=== PATIENT | female | born 1950 | race Caucasian/White ===

== ENCOUNTER 2019-11-13 09:43 | Emergency (ER) | payer OTHER, MEDICARE, SELFPAY ==
--- NOTE | ~2019-11-13 | XR_ITS ---
EXAMINATION: XR chest 2V 11/13/2019 10:18 INDICATION: Cough with shortness of breath PROCEDURE: 2 view chest COMPARISON: No prior studies for comparison. FINDINGS: The lungs are clear. The cardiomediastinal silhouette is within normal limits. There are no pleural effusions. There is no pneumothorax suspected. Moderate size hiatal hernia. IMPRESSION: 1: NO ACUTE CARDIOPULMONARY DISEASE. Reviewed, dictated and finalized at location A. [employer]
[2019-11-13 09:58] VITALS: BP 130/68; PULSE 113; RESP 18; TEMP 37.3; O2SAT 97
--- NOTE | 2019-11-13 10:58 | ED.URI ---
HPI - URI/Sore Throat General Chief Complaint: Upper Respiratory Infection Stated Complaint: COUGH/SOB Time Seen by Provider: 11/13/19 10:58 Source: patient and RN notes reviewed Mode of arrival: ambulatory Limitations: no limitations History of Present Illness HPI Narrative: 69-year-old female who presents to [facility] care with complaints of persistent cough since September.Patient states she had a cold the first part of September and continues to have cough with expectoration of thick white mucous at times. Patient states that she has also experienced shortness of breath with exertion at times. She reports that for the past 4 days she has had right ear pain. Patient reports that she did have a fever of 100.9F 2 or 3 days ago and has been taking cold medications and OTC Ibuprofen for her symptoms without resolution. Patient has coarse lungs sounds on auscultation, no wheezing noted or tachypnea or accessory muscle use, SAO2 97% on room air.. MD elicited complaint: cough Onset (ago): month(s) (2) Consistency: constant Severity: mild Pain scale (0-10): 3 Description of mucous: other (White thick) Able to tolerate fluids by mouth: Yes Exacerbating factors: exertion Relieving factors: nothing Associated symptoms: fever, cough, shortness of breath and ear pain (right) Treatments prior to arrival: ibuprofen and cold medicine Related Data Home Medications Medication Instructions Recorded Confirmed duloxetine 60 mg PO DAILY 11/13/19 11/13/19 omeprazole 40 mg PO DAILY 11/13/19 11/13/19 Allergies Allergy/AdvReac Type Severity Reaction Status Date / Time penicillin G Allergy Mild RASH Verified 06/21/18 11:48 Review of Systems Review of Systems: Narrative: CONSTITUTIONAL: reports recent fever 2or 3 days ago of 100.9F, no chills, or sweats. EYES: Denies visual changes, redness, or discharge. ENT: Denies rhinorrhea, congestion, sore throat, positive right ear otalgia. CARDIOVASCULAR: Denies chest pain, palpitations, or edema. RESPIRATORY: positive dry and productive cough dyspnea on exertion. GASTROINTESTINAL: Denies abdominal pain, nausea, vomiting, or diarrhea. GENITOURINARY: Denies dysuria or hematuria. SKIN: Denies rash or itching. MUSCULOSKELETAL: Denies back pain, joint pain, or myalgia. NEUROLOGIC: Denies headache, numbness, or weakness. PSYCHIATRIC: Denies anxiety or depression. All systems reviewed & are unremarkable except as noted in HPI and below PMFSH Past Medical History Medical History (Updated 11/14/19 @ 20:56 by Tila Hernandez NP) Colon polyps Eczema GERD (gastroesophageal reflux disease) Pulmonary embolism Tubal infertility in female Surgical History Surgical History (Updated 11/14/19 @ 20:51 by Tila Hernandez NP) History of colon resection Family History Family History Other Family history of heart disease in male family member before age 55 Social History Social History (Updated 11/14/19 @ 20:52 by Tila Hernandez NP) Smoking status: Former smoker Second hand tobacco smoke exposure: No Smoking end date: 10/12/81 Living arrangements: with family Gender identity (if verbalized by the patient): Female Comments At time of signature, agree with nursing past medical, surgical, social and family history. There is no relevant family history pertinent to the presenting complaint Exam Narrative: Exam Narrative: GENERAL: Well-appearing, well-nourished, and in no acute distress. HEAD: Normocephalic, atraumatic. EYES: PERRLA and EOMI. ENT: Nares clear, no rhinorrhea or epistaxis. Mucous membranes moist.TM's normal with right ear noted to have dull light reflex, throat pink with no swollen tonsils or lesions NECK: Supple.no lymphadenopathy CHEST:Coarse to auscultation. No respiratory distress.some LOVING verbalized, cough which is productive of thick white mucous at times HEART: Regular rate and rhythm. No murmur heard. Normal periphe
== END 2019-11-13 11:22 | disposition home or self-care (01) ==
PROVIDERS: Emergency Provider Registered Nurse; PCP Family Medicine Adolescent Medicine
DX: R05 Cough (principal); H92.01 Otalgia, right ear
CPT/HCPCS: 71046; 99213; G0463

== ENCOUNTER 2020-02-01 00:15 | Observation (INO) | payer OTHER, MEDICARE, SELFPAY ==
[2020-02-01] VITALS (14 sets, daily range): BP systolic 144–183; BP diastolic 55–109; PULSE 74–111; RESP 16–18; TEMP 36.3–37; O2SAT 97–100; BMI 30.1; BMI 30.8
--- NOTE | 2020-02-01 00:22 | ED.NAVMDI ---
HPI - Nausea/Vomiting/Diarrhea General Chief complaint: Recheck/Abnormal Lab/Rx Stated complaint: high blood sugar Time Seen by Provider: 02/01/20 00:16 History of Present Illness HPI Narrative: 69 yo female w/ h/o PE GERD, eczema presents c/o high blood sugar. She has had mild intermittent nausea going back at least several weeks. More recently she began to notice polydipsia and polyuria. After that she began testing her glucose, which has been consistently elevated. She contacted her PCP and had outpatient labs done today, no results. Tonight while at work she checked her glucose and it was over 400, so she decided to come to the ED to be seen. Related Data Home Medications Medication Instructions Recorded Confirmed duloxetine 60 mg PO DAILY 11/13/19 11/13/19 omeprazole 40 mg PO DAILY 11/13/19 11/13/19 Allergies Allergy/AdvReac Type Severity Reaction Status Date / Time penicillin G Allergy Mild RASH Verified 02/01/20 01:48 Review of Systems Review of Systems: All systems reviewed & are unremarkable except as noted in HPI and below Constitutional: Constitutional: Denies fever(s) Eyes: Eyes: Denies change in vision ENT: Denies sore throat Cardiovascular: Cardiovascular: Denies chest pain Respiratory: Respiratory: Denies dyspnea Gastrointestinal: Gastrointestinal: Denies diarrhea and Reports nausea Genitourinary: Genitourinary: Reports nocturia and Denies dysuria Musculoskeletal: Musculoskeletal: Denies back pain Endocrine: Endocrine: Reports polydipsia and Reports polyuria [facility] Past Medical History Medical History Colon polyps Eczema GERD (gastroesophageal reflux disease) Pulmonary embolism Tubal infertility in female Surgical History Surgical History History of colon resection Family History Family History Other Family history of heart disease in male family member before age 55 Social History Social History Smoking status: Former smoker Second hand tobacco smoke exposure: No Smoking end date: 10/12/81 Gender identity (if verbalized by the patient): Female Exam Const: General: no acute distress and alert Orientation/consciousness: patient oriented x3 HENMT: Mouth: Yes dry mucous membranes Resp: Effort & Inspection: normal respiratory effort Auscultation: clear to auscultation bilaterally Cardio: Rate: regular rate Rhythm: regular rhythm GI: GI Palp: Yes Soft to palpation and No Tenderness to palpation present (GI) Skin: General skin exam: normal color Rashes: no rashes Neuro: General: patient oriented x3, moves all extremities, no focal motor deficits and CN's II-XI intact bilaterally Speech: normal speech Extrem: General: normal to inspection Course Vital Signs Vital signs: Vital Signs Temperature 36.8 C 02/01/20 00:24 Pulse Rate 111 H 02/01/20 00:24 Respiratory Rate 16 02/01/20 00:24 Blood Pressure 183/109 H 02/01/20 00:24 Pulse Oximetry 97 02/01/20 00:24 Temperature 36.8 C 02/01/20 00:24 Pulse Rate 93 02/01/20 03:12 Respiratory Rate 16 02/01/20 03:12 Blood Pressure 161/86 H 02/01/20 03:12 Pulse Oximetry 100 02/01/20 03:12 MDM - Nausea/Vomiting/Diarrhea MDM Narrative Medical decision making narrative: She has DKA and likely UTI. She is relatively well appearing and I do not think that she necessarily needs an insulin drip and ICU admission. After 2 liters NS and 10 units insulin her anion gap narrowed to 14. Case dicussed with hospitalist. Will start long acting insulin Differential Diagnosis Differential diagnosis: Likely other (Type II DM. DKA, UTI) Medical Records Attestation: I reviewed the patient's medical records. Lab Data Attestation: I reviewed the patient's lab results. Result di
[2020-02-01] MEDS: SODIUM CHLORIDE 0.9% IV 1,000 ML 999 ML IV CONT ×2 (00:41→01:56)
[2020-02-01 00:53] LABS: Basophils Absolute Auto 0.1 K/mm3 (0.0-0.1); Basophils Percent Auto 0.7 % (0.2-1.2); Eosinophils Absolute Auto 0.1 K/mm3 (0-0.3); Eosinophils Percent Auto 0.7 % (0-4.4); Hematocrit 44.7 % (37.0-47.0); Hemoglobin 14.1 g/dL (12.0-15.0); Immature Granulocyte Absolute 0.02 K/mm3 (0.00-0.031); Immature Granulocyte Percent A 0.3 % (0-0.5); Immature Platelet Fraction Pct 14.3 % (0.9-11.2); Lymphocytes Absolute Auto 1.04 K/mm3 (0.9-3.2); Lymphocytes Percent Auto 15.3 % (18.3-44.2); Mean Corpuscular HGB Conc 31.5 g/dl (32-36); Mean Corpuscular Hemoglobin 26.4 pg (26-34); Mean Corpuscular Volume 83.7 fl (80-100); Mean Platelet Volume 13.5 fl (7.4-10.4); Monocytes Absolute Auto 0.5 K/mm3 (0.1-0.6); Monocytes Percent Auto 6.6 % (2.6-8.5); Neutrophils Absolute Auto 5.2 K/mm3 (1.3-6.7); Neutrophils Percent Auto 76.4 % (45.5-73.1); Platelet Count Result 242 k/mm3 (150-375); Red Blood Count 5.34 M/mm3 (4.2-5.4); Red Cell Distribution Width 15.5 % (11.5-14.5); White Blood Count 6.8 K/mm3 (4.5-10.0)
[2020-02-01 00:58] LABS: Add Urine Microscopic? YES; Appearance Urine Clear (Clear); Bacteria Urine Trace /hpf; Bilirubin Urine Negative (Negative); Color Urine Yellow (Yellow); Glucose Urine UA 3+ mg/dL (Negative); Hyaline Casts Urine 20-29 /lpf; Ketones Urine 1+ mg/dL (Negative); Leukocyte Esterase Ur Trace LEU/UL (Negative); Mucus Urine Rare /lpf; Nitrate Urine Negative (Negative); Protein Urine Negative (Negative); RBC Urine 0-2 /hpf (0-2); Specific Grav Ur 1.029 (1.001-1.035); Squamous Epithelial Cell Urine Occasional /hpf (Few); Urobilinogen Urine Negative mg/dL (<2.0); WBC Urine 21-30 /hpf
[2020-02-01 00:59] LABS: Blood Urine Negative (Negative)
[2020-02-01 01:05] LABS: Alanine Aminotransferase 48 U/L (4-35); Albumin Level 4.7 g/dL (3.5-5.1); Alkaline Phosphatase 138 U/L (38-126); Aspartate Amino Transferase 41 U/L (14-36); Bilirubin,Total 0.7 mg/dL (0.2-1.3); Blood Urea Nitrogen 21 mg/dL (7-17); Calcium 10.8 mg/dL (8.4-10.2); Carbon Dioxide 17 mmol/L (22-30); Chloride 98 mmol/L (98-107); Estimated Glomerular Filt Rate 45; Glucose 441 mg/dL (65-105); Potassium 4.5 mmol/L (3.4-5.0); Sodium 132 mmol/L (137-145)
[2020-02-01 01:24] LABS: Beta-Hydroxybutyrate/Acetoacetate 3.08 mmol/L (0.02-0.27)
[2020-02-01] MEDS: INSULIN HUMAN REGULAR (*BKC) 100 UNITS/ML 10 UNITS IV PUSH (01:55)
[2020-02-01 03:12] LABS: Blood Urea Nitrogen 18 mg/dL (7-17); Calcium 9.6 mg/dL (8.4-10.2); Carbon Dioxide 15 mmol/L (22-30); Chloride 107 mmol/L (98-107); Estimated Glomerular Filt Rate 55; Glucose 232 mg/dL (65-105); Potassium 3.9 mmol/L (3.4-5.0); Sodium 136 mmol/L (137-145)
[2020-02-01] MEDS: SODIUM CHLORIDE 0.9% IV 1,000 ML 150 ML IV CONT (03:58)
[2020-02-01] MEDS: INSULIN GLARGINE (*BKC) 100 UNITS/ML 10 UNITS SUB-Q (04:07)
--- NOTE | 2020-02-01 04:45 | PC.NURSE ---
Report received from ER, Nurse Jose Benedict confirms that patient received 10 units lantus.
[2020-02-01 05:49] LABS: Glucose Point of Care 159 (65-105)
[2020-02-01] MEDS: ACETAMINOPHEN 325 MG TABLET 650 MG PO (05:49)
--- NOTE | 2020-02-01 06:07 | ADMIMU ---
This patient, Alison Dow, was admitted to IMU status, and placed in IMU Room 205-01 at 0455 on 02/01/20. Patient/family oriented to hospital policies and general routines including ID bracelet, bed and alarms, visiting hours, pain management, procedures, bathroom and other care routines, personal items, smoking policy, room service/diet, and visiting hours. Valuables list has been completed. Information on how to activate the Rapid Response Team has been discussed. Patient/Family are encouraged to report perceived risks to care and to ask questions if they do not understand what they are told or what they should do.
--- NOTE | 2020-02-01 06:09 | PC.NURSE ---
personal lines sales rep called to make aware of consult
[2020-02-01 08:16] LABS: Glucose Point of Care 136 (65-105)
--- NOTE | 2020-02-01 09:42 | PM.IMHP ---
H&P: HPI History of Present Illness Chief complaint: DKA Narrative: Date of service: 02/01/20 Alison Dow is a 69 year old female with a PMH significant for colon polyps, GERD, and PE who presented to the ED on 02/01/20 from work at [employer] in [facility], with complaints of abnormal blood glucose. She explains that she had been feeling very run down for approximately 1 month or so with fatigue, weakness, nausea, and decreased appetite. She noted that she had been urinating more frequently, her mouth was very dry, and she was very thirsty. She was concerned about diabetes because her mother has a history of DM. She called her PCP Dr. Edmond on 01/27/20 with her concerns and he ordered outpatient labs which she completed on 01/30/20 but has not received the results. She bought a glucometer on 01/28/20 and had been checking her blood sugar in the morning, at night, and intermittently in between. It had been in the 250s. Last night at work, she was feeling nauseous and checked her blood sugar again and it was 459, which prompted her to seek care in the ED. Today, she states that her dry mouth and nausea have improved. She has not vomited. She denies abdominal pain. She is urinating less frequently, and denies dysuria or hematuria. She endorses mild headache and blurred vision. She states her appetite is adequate. She had a hard time sleeping last night as she was in the ED. She denies dizziness or lightheadedness. She denies chest pain, SOB, cough, congestion, dysphagia, myalgia, arthralgia, bleeding, bruising, anxiety, or depression. Review of Systems Review of Systems: Narrative: A 12 point review of systems was reviewed with pertinent positives and negatives as per HPI. [facility] Past Medical History Medical History (Updated 02/01/20 @ 09:59 by Joi Teresa PA-C) Colon polyps GERD (gastroesophageal reflux disease) Pulmonary embolism Surgical History Surgical History (Updated 02/01/20 @ 09:59 by Joi Teresa PA-C) History of colon resection Partial; 2013 History of laparoscopy Infertility workup Family History Family History (Updated 02/01/20 @ 10:00 by Joi Teresa PA-C) Sibling Acute myocardial infarction Father Chronic obstructive pulmonary disease Hypertension Lung cancer Mother Diabetes mellitus Hypertension Social History Social History (Updated 02/01/20 @ 10:02 by Joi Teresa PA-C) Social History: Ms. Dow lives at home with her . She has two daughters. 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 She designates her Royce as her surrogate decision maker and she would like to be a full code. Smoking packs per day: 0.5 Smoking cigarettes per day: 10.0 Years smoked: 4 Smoking pack-years: 2.00 Smoking status: Former smoker Tobacco type: cigarettes Second hand tobacco smoke exposure: Yes Smoking end date: 01/10/75 Alcohol use details: Social alcohol use a couple times per year. Substance use: never Substance use type: does not use Living arrangements: with family Occupation/Education: occupation Additional occupation/education comments: PRODUCT MANAGER Gender identity (if verbalized by the patient): Female Spiritual care concerns: No Agree to blood products: Yes Meds Home Medications and Allergies Home Medications Medication Instructions Recorded Confirmed Type duloxetine 60 mg PO DAILY 11/13/19 02/01/20 History omeprazole 40 mg PO DAILY 11/13/19 02/01/20 History cholecalciferol (vitamin D3) 2,000 unit PO DAILY 02/01/20 02/01/20 History [Vitamin D3] multivit with min-folic acid 0.4 mg PO DAILY 02/01/20 02/01/20 History [Adult One Daily Multivitamin] Allergies Allergy/AdvReac Type Severity Reaction Status Date / Time penicillin G Allergy Mild RASH Verified 02/01/20 01:48 Vital Signs Vital Signs - 24 hr 02/01/20 00:24 02/01/20 01:45 02/01/20 03:12 Temperature 98.3 F Pulse Rate 111 H 86 93 R
[2020-02-01] MEDS: CHOLECALCIFEROL 1,000 UNIT TABLET 2000 UNITS PO (11:27)
[2020-02-01] MEDS: DULOXETINE 60 MG CAPSULE.DR PO (11:28)
[2020-02-01] MEDS: THERAPEUTIC MULTIVITAMINS/MINERALS TAB (*BKC) 1 TABLET PO (11:28)
[2020-02-01] MEDS: POTASSIUM CHLORIDE 20 MEQ PACKET (FOR LIQUID) PO (11:28)
[2020-02-01] MEDS: ENOXAPARIN 40 MG/0.4 ML SYRINGE SUB-Q (11:28)
[2020-02-01 12:07] LABS: Lactic Acid 0.8 mmol/L (0.7-2.1); Phosphorus 3.1 mg/dL (2.5-4.5)
[2020-02-01 12:17] LABS: Blood Urea Nitrogen 11 mg/dL (7-17); Calcium 9.7 mg/dL (8.4-10.2); Carbon Dioxide 23 mmol/L (22-30); Chloride 104 mmol/L (98-107); Estimated CRCL calculation 83 ml/min; Estimated Glomerular Filt Rate > 60; Glucose 220 mg/dL (65-105); Potassium 3.7 mmol/L (3.4-5.0); Sodium 135 mmol/L (137-145)
[2020-02-01] MEDS: INSULIN ASPART (*BKC) 100 UNITS/ML SUB-Q ×2 (12:38→17:48)
[2020-02-01 12:39] LABS: Glucose Point of Care 204 (65-105)
[2020-02-01 12:48] LABS: Hemoglobin A1C > 14.0 % (<5.7)
--- NOTE | 2020-02-01 15:21 | PC.NURSE ---
This patient, Alison Dow, was transferred to [[id number]] on 02/01/20 at 1521. Personal belongings sent with patient. Belongings list checked and signed with receiving []. Report given to [DUTCH CANCINO]. Appropriate documentation sent with patient.
[2020-02-01 17:53] LABS: Glucose Point of Care 332 (65-105)
[2020-02-01 19:27] LABS: Blood Urea Nitrogen 12 mg/dL (7-17); Calcium 9.8 mg/dL (8.4-10.2); Carbon Dioxide 23 mmol/L (22-30); Chloride 104 mmol/L (98-107); Estimated CRCL calculation 72 ml/min; Estimated Glomerular Filt Rate > 60; Glucose 321 mg/dL (65-105); Potassium 3.7 mmol/L (3.4-5.0); Sodium 135 mmol/L (137-145)
[2020-02-01] MEDS: PANTOPRAZOLE 40 MG TABLET PO (19:50)
[2020-02-01] MEDS: INSULIN GLARGINE (*BKC) 100 UNITS/ML 20 UNITS SUB-Q (21:26)
[2020-02-01] MEDS: FAMOTIDINE 20 MG/2 ML VIAL IV PUSH (21:26)
[2020-02-01 22:08] LABS: Glucose Point of Care 271 (65-105)
[2020-02-02 06:00] VITALS: BP 137/66; PULSE 73; RESP 16; TEMP 36.6; O2SAT 99
[2020-02-02 06:28] LABS: Basophils Percent Auto 0.9 % (0.2-1.2); Eosinophils Absolute Auto 0.2 K/mm3 (0-0.3); Eosinophils Percent Auto 5.4 % (0-4.4); Hematocrit 39.7 % (37.0-47.0); Hemoglobin 12.2 g/dL (12.0-15.0); Immature Granulocyte Absolute 0.01 K/mm3 (0.00-0.031); Immature Granulocyte Percent A 0.3 % (0-0.5); Lymphocytes Absolute Auto 1.07 K/mm3 (0.9-3.2); Lymphocytes Percent Auto 30.4 % (18.3-44.2); Mean Corpuscular HGB Conc 30.7 g/dl (32-36); Mean Corpuscular Hemoglobin 26.1 pg (26-34); Mean Corpuscular Volume 84.8 fl (80-100); Mean Platelet Volume 13.8 fl (7.4-10.4); Monocytes Absolute Auto 0.4 K/mm3 (0.1-0.6); Monocytes Percent Auto 10.5 % (2.6-8.5); Neutrophils Absolute Auto 1.9 K/mm3 (1.3-6.7); Neutrophils Percent Auto 52.5 % (45.5-73.1); Platelet Count Result 174 k/mm3 (150-375); Red Blood Count 4.68 M/mm3 (4.2-5.4); Red Cell Distribution Width 15.6 % (11.5-14.5); White Blood Count 3.5 K/mm3 (4.5-10.0)
[2020-02-02 06:36] LABS: Alanine Aminotransferase 35 U/L (4-35); Albumin Level 3.5 g/dL (3.5-5.1); Alkaline Phosphatase 104 U/L (38-126); Aspartate Amino Transferase 33 U/L (14-36); Bilirubin,Total 0.3 mg/dL (0.2-1.3); Blood Urea Nitrogen 9 mg/dL (7-17); Calcium 9.7 mg/dL (8.4-10.2); Carbon Dioxide 24 mmol/L (22-30); Chloride 105 mmol/L (98-107); Estimated CRCL calculation 70 ml/min; Estimated Glomerular Filt Rate > 60; Glucose 273 mg/dL (65-105); Magnesium 1.9 mg/dL (1.6-2.3); Phosphorus 3.7 mg/dL (2.5-4.5); Potassium 4.1 mmol/L (3.4-5.0); Sodium 135 mmol/L (137-145)
[2020-02-02 08:08] LABS: Glucose Point of Care 215 (65-105)
[2020-02-02] MEDS: CHOLECALCIFEROL 1,000 UNIT TABLET 2000 UNITS PO (08:19)
[2020-02-02] MEDS: DULOXETINE 60 MG CAPSULE.DR PO (08:19)
[2020-02-02] MEDS: FAMOTIDINE 20 MG/2 ML VIAL IV PUSH (08:19)
[2020-02-02] MEDS: THERAPEUTIC MULTIVITAMINS/MINERALS TAB (*BKC) 1 TABLET PO (08:19)
[2020-02-02] MEDS: ENOXAPARIN 40 MG/0.4 ML SYRINGE SUB-Q (08:19)
[2020-02-02] MEDS: INSULIN ASPART (*BKC) 100 UNITS/ML SUB-Q ×2 (08:19→11:58)
[2020-02-02] MEDS: PANTOPRAZOLE 40 MG TABLET PO (11:55)
[2020-02-02 12:07] LABS: Glucose Point of Care 258 (65-105)
--- NOTE | 2020-02-02 12:20 | PM.IMPN ---
Progress Note: A&P Assessment and Plan (1) DKA (diabetic ketoacidosis): Qualifiers: Diabetes mellitus complication detail: without coma Diabetes mellitus type: type 2 Qualified Code(s): E11.10 - Type 2 diabetes mellitus with ketoacidosis without coma Code(s): E11.10 - Type 2 diabetes mellitus with ketoacidosis without coma Status: Acute Assessment and Plan: Findings consistent on presentation but mild. Did not require treatment in ICU. Has been seen by icer air conditioning. Acidosis has been corrected. Glucose reviewed on 02/02/2020 and still in 200s but just started on Lantus last evening. Also has sliding scale insulin. Hemoglobin A1c greater than 14.0. Will discharge home today but will need to follow-up with primary physician MILY. (2) Bacteriuria: Code(s): R82.71 - Bacteriuria Status: Acute Assessment and Plan: No significant symptoms. Urine culture growing greater than 100,000 colonies of coagulase-negative Staph, not saprophyticus. Will not treat. (3) GERD (gastroesophageal reflux disease): Qualifiers: Esophagitis presence: esophagitis presence not specified Qualified Code(s): K21.9 - Gastro-esophageal reflux disease without esophagitis Code(s): K21.9 - Gastro-esophageal reflux disease without esophagitis Status: Acute Assessment and Plan: Stable. Continue Protonix. Will discontinue Pepcid. (4) DVT prophylaxis: Code(s): Z29.9 - Encounter for prophylactic measures, unspecified Status: Acute Assessment and Plan: Lovenox. Time Spent With Patient Time with patient: 15 - 25 minutes Subjective Date/time seen: 02/02/20 12:20 Interval history: Date of Service: 02/02/2020. Admitted with DKA, new onset diabetes. Feels better today. No nausea or vomiting. No headache or dizziness. No chest pain. No shortness of breath. Review of Systems Review of Systems: Narrative: Feeling better. Constitutional: Constitutional: Denies chills and Denies fever(s) ENT: Denies dysphagia Cardiovascular: Cardiovascular: Denies chest pain and Denies palpitations Respiratory: Respiratory: Denies dyspnea Gastrointestinal: Gastrointestinal: Denies abdominal pain, Denies nausea and Denies vomiting Genitourinary: Genitourinary: Reports no additional female genitourinary complaints Musculoskeletal: Musculoskeletal: Reports no additional musculoskeletal complaints Integumentary/Breasts: Skin/Breast: Denies rash Neurologic: Denies headache(s) Psychiatric: Psychiatric: Denies anxiety, Denies confusion and Denies depression Exam Narrative: Exam Narrative: Awake and alert. Const: General: no acute distress HENMT: Mouth: Yes moist mucous membranes Neck: Neck: supple Lymphatic: lymphadenopathy not noted Resp: Auscultation: clear to auscultation bilaterally, no rales and no wheezes Cardio: Rate: regular rate Rhythm: regular rhythm GI: Inspection: non-distended GI Palp: Yes Soft to palpation and No Tenderness to palpation present (GI) Auscultation: normal bowel sounds Skin: General skin exam: no rashes or lesions noted Neuro: Cognition (Neuro): normal cognition Speech: normal speech Extrem: General: no edema Psych: Mental Status: mental status grossly normal Affect: normal affect Objective Data Vital Signs Vital Signs: Vital Signs - 24 hr 02/01/20 21:47 02/02/20 06:00 Temperature 97.3 F L 97.8 F Pulse Rate 75 73 Respiratory Rate 18 16 Blood Pressure 144/65 H 137/66 Pulse Oximetry 100 99 Intake/Output Intake/Output: Intake & Output 01/30/20 01/31/20 02/01/20 02/02/20 23:59 23:59 23:59 23:59 Intake Total 4130 540 Output Total 1000 Balance 3130 540 Meds/Results Medications: Active Medications Generic Name Dose Route Start Last Admin Trade Name Freq PRN Reason Stop Dose Admin Acetaminophen 650 mg 02/01/20 05:40 02/01/20 05:49 Tylenol Tablet PO 650 mg Q4H
--- NOTE | 2020-02-02 18:30 | PM.DS ---
DS: Diagnosis Admitting Diagnosis Admitting Diagnosis: Type 2 diabetes mellitus with ketoacidosis without coma Discharge Diagnosis (1) DKA (diabetic ketoacidosis): Qualifiers: Diabetes mellitus complication detail: without coma Diabetes mellitus type: type 2 Qualified Code(s): E11.10 - Type 2 diabetes mellitus with ketoacidosis without coma Code(s): E11.10 - Type 2 diabetes mellitus with ketoacidosis without coma Status: Acute Assessment and Plan: (2) Bacteriuria: Code(s): R82.71 - Bacteriuria Status: Acute (3) GERD (gastroesophageal reflux disease): Qualifiers: Esophagitis presence: esophagitis presence not specified Qualified Code(s): K21.9 - Gastro-esophageal reflux disease without esophagitis Code(s): K21.9 - Gastro-esophageal reflux disease without esophagitis Status: Acute DS: Summary Hospital Course Hospital Course: Date of Service of Discharge: February 02, 2020. History of Present Illness: Patient is a 69-year-old woman with history of GERD, pulmonary embolism and colon polyps who present to the emergency room on 02/01/2020 with complaints of abnormal blood glucose. 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 She had been feeling run down for approximately 1 month with fatigue, weakness, nausea and decreased appetite. She also noted increased urination, dry mouth and increased thirst. Patient was concerned about her symptoms as her mother is known to have had diabetes. She did call her primary physician, Dr. Gonsalez, on 01/27/2020 with these concerns. Outpatient laboratory work was ordered and completed on 01/30/2020 but results were not known by the time of presentation to the ER. She has been checking her blood glucose at home with a glucometer since 01/28/2020. Glucose readings have been in the 250s. While at work, she felt nauseated and checked her blood sugar with glucose 459. On evaluation in the emergency room, she was noted to be in mild DKA with IV fluids and IV insulin given in the emergency room. With DKA mild, she was felt safe to place in IMU for further evaluation and treatment. Course in Hospital: Patient was placed in observation on IMU initially with IV fluids continued while monitoring electrolytes. She did receive oral potassium. She was also started on diabetic diet. With correction of acidosis, she was able to transfer to the medical floor on 02/01/2020 remained there for the duration of her stay. She was started on long-acting Lantus at 20 units on the night of 02/01/2020 with sliding scale insulin also available. Glucose remained stable in the 200s with this regimen. Acidosis remained corrected with electrolytes stable. She was seen in consultation by the software educator during her stay. By 02/02/2020, patient was feeling much better. She was not experience excessive thirst or excessive urination. Appetite had improved. No abdominal pain, nausea or vomiting. No chest pain or shortness of breath. Patient was comfortable discharging home with use of both Lantus and sliding scale insulin. C-peptide had been ordered but pending at time of discharge. Patient had no exacerbation of acid reflux. She was actually given IV Pepcid followed by oral Protonix during her stay. She additionally was continued on her home duloxetine with no change in mood. With the patient stabilized, she was discharged home on the afternoon of 02/02/2020. Her primary physician, Dr. Edmond, was notified of admission and discharge as well as discharge plan. After patient was discharged, NovoLog was switched to Humalog due to formulary preference. Status at Discharge Cognitive/behavioral status at discharge: Stable. Functional status at discharge: independent ambulation Overall status at discharge: patient is back to baseline Time Spent with Patient Time attestation: Total time spent providing and/or coordinating discharge services: 40
[2020-02-04 04:46] LABS: C-Peptide 2.72 ng/mL (0.80-3.85)
== END 2020-02-02 14:13 | disposition home or self-care (01) ==
LOC: ANHED 04:26 → ANHIMU 04:35 → ANH3MEDSUR 15:23
PROVIDERS: Physician Assistant; Admitting Provider Internal Medicine; Emergency Provider Emergency Medicine; PCP Family Medicine Adolescent Medicine; Visit Provider Hospitalist
DX: E11.10 Type 2 diabetes mellitus with ketoacidosis without coma (principal); R82.71 Bacteriuria; K21.9 Gastro-esophageal reflux disease without esophagitis; Z79.899 Other long term (current) drug therapy; Z86.010 Personal history of colon polyps; Z86.711 Personal history of pulmonary embolism; Z87.891 Personal history of nicotine dependence; Z88.0 Allergy status to penicillin
CPT/HCPCS: 36415; 80048; 80053; 81001; 82010; 83036; 83605; 83735; 84100; 84681; 85025; 85055; 87077; 87086; 87088; 87186; 96361; 96365; 96372; 96374; 96375; 99291; A9270; G0378; J0696; J1650; J1815; J7030

== ENCOUNTER 2021-04-10 01:41 | Day surgery (SDC) | payer OTHER, SELFPAY ==
[2021-03-21 08:23] VITALS: BMI 28.6
[2021-04-10 08:12] VITALS: BP 137/73; PULSE 100; RESP 18; TEMP 36.2; O2SAT 98
[2021-04-10] MEDS: LACTATED RINGERS 1,000 ML 150 ML IV CONT (08:18)
[2021-04-10 08:34] LABS: Glucose Point of Care 120 mg/dl (65-105)
--- NOTE | 2021-04-10 08:37 | WPDANESEPPF ---
Anes - Initial Pre Proc Eval Procedure: Operation Date: 04/10/21 09:00 Proposed Procedures p Esophagogastroduodenoscopy&Screen Colon - Cornelius Obregon MD Date/Time: 04/10/21 08:37 Surgeon: Cornelius Obregon MD Pre Op Diagnosis: neoplasm screening,hx of colon polyps,barretts eso Patient Data Age: 70 Gender: F Height: 1.65 m Weight: 78 kg Last Vital Signs Temp 97.2 F L 04/10/21 08:12 Pulse 100 04/10/21 08:12 Resp 18 04/10/21 08:12 BP 137/73 04/10/21 08:12 Pulse Ox 98 04/10/21 08:12 Allergies Allergy/AdvReac Type Severity Reaction Status Date / Time Penicillins Allergy Severe Rash Verified 04/10/21 08:11 Home Medications Medication Instructions Recorded Confirmed Type duloxetine 60 mg PO DAILY 11/13/19 04/10/21 History blood sugar diagnostic [OneTouch #100 each 02/02/20 Rx Verio] lancets [OneTouch UltraSoft #100 each 02/02/20 Rx Lancets] pen needle, diabetic [Ultra-Thin #100 each 02/02/20 Rx II Ins Pen [place]] Adults Multivitamin 1 tab-cap PO DAILY 03/21/21 04/10/21 History calcium carb-vitamin D3-vit K2 1 cap PO DAILY 03/21/21 04/10/21 History metformin 1,000 mg PO QACDINNER 03/21/21 04/10/21 History pantoprazole 40 mg PO DAILY 03/21/21 04/10/21 History Laboratory Tests 04/10/21 08:17 POC Capillary Glucose 120 mg/dl H mg/dl (65-105) Patient hx anesthesia problems: none Family hx anesthesia problems: none PMFSH Past Medical History Medical History (Updated 04/10/21 @ 08:38 by Jian Madrigal MD) Colon polyps Diabetes 1.5, managed as type 2 GERD (gastroesophageal reflux disease) Pulmonary embolism Surgical History Surgical History (Updated 02/01/20 @ 09:59 by Joi Teresa PA-C) History of colon resection Partial; 2013 History of laparoscopy Infertility workup Family History Family History (Updated 02/01/20 @ 10:00 by Joi Teresa PA-C) Sibling Acute myocardial infarction Father Chronic obstructive pulmonary disease Hypertension Lung cancer Mother Diabetes mellitus Hypertension Social History Social History (Updated 02/01/20 @ 10:02 by Joi Teresa PA-C) Social History: Ms. Dow lives at home with her . She has two daughters. 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 She designates her Rich as her surrogate decision maker and she would like to be a full code. Smoking packs per day: 0.5 Smoking cigarettes per day: 10.0 Years smoked: 10 Smoking pack-years: 5.00 Smoking status: Former smoker Tobacco type: cigarettes Second hand tobacco smoke exposure: Yes Smoking end date: 01/10/75 Alcohol intake: never Substance use: never Substance use type: does not use Living arrangements: with family Additional occupation/education comments: SQL ANALYST Gender identity (if verbalized by the patient): Female Spiritual care concerns: No Agree to blood products: Yes Anes - Eval Final PreProcedure Day of Procedure 04/10/21 08:37 Patient weight: obese Heart: regular rate and rhythm Lungs: clear to auscultation Airway: Mallampati scale class II Neurological: alert and oriented Last oral intake: >/= 8 hours ASA classification: III Emergent: no Anesthetic plan: proceed Anesthesia type and monitoring: general GIVS and standard monitoring Informed Consent: The patient's anesthetic plan and its attendant risks and benefits were discussed with the patient/family/POA. Questions were solicited and answers provided to the satisfaction of the patient/family/POA.
--- NOTE | 2021-04-10 09:02 | PM.HPGS ---
History of Present Illness History of Present Illness Consent: Risks, benefits, and alternatives have been discussed and questions answered. Patient agrees to proceed with procedure. Chief complaint: neoplasm screening,hx of colon polyps,barretts eso Narrative: Alison Dow is a 70 year old female with colon polyp in 2013, muniz's on pantoprazole last egd 3 years ago. Review of Systems Constitutional: Constitutional: Denies headache(s) and Denies weakness Eyes: Eyes: Denies blurry vision ENT: Reports Normal hearing present, Denies headache(s) and Denies neck pain Cardiovascular: Cardiovascular: Denies chest pain and Denies dyspnea Respiratory: Respiratory: Denies dyspnea Gastrointestinal: Gastrointestinal: Reports no additional gastrointestinal complaints Genitourinary: Genitourinary: Denies dysuria Musculoskeletal: Musculoskeletal: Denies neck pain Integumentary/Breasts: Skin/Breast: Denies dry skin Neurologic: Reports Normal hearing present, Denies headache(s) and Denies weakness Psychiatric: Psychiatric: Denies anxiety Endocrine: Endocrine: Denies change in body appearance Hematologic/Lymphatic: Hematologic/Lymphatic: Denies easy bleeding Allergic/Immunologic: Allergic/Immunologic: Denies urticaria PMFSH Past Medical History Medical History (Updated 04/10/21 @ 09:03 by Cornelius Obregon MD) Colon polyps Diabetes 1.5, managed as type 2 GERD (gastroesophageal reflux disease) Pulmonary embolism Surgical History Surgical History (Updated 02/01/20 @ 09:59 by Joi Teresa PA-C) History of colon resection Partial; 2013 History of laparoscopy Infertility workup Family History Family History (Updated 02/01/20 @ 10:00 by Joi Teresa PA-C) Sibling Acute myocardial infarction Father Chronic obstructive pulmonary disease Hypertension Lung cancer Mother Diabetes mellitus Hypertension Social History Social History (Updated 02/01/20 @ 10:02 by Joi Teresa PA-C) Social History: Ms. Dow lives at home with her . She has two daughters. 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 She designates her Rich as her surrogate decision maker and she would like to be a full code. Smoking packs per day: 0.5 Smoking cigarettes per day: 10.0 Years smoked: 10 Smoking pack-years: 5.00 Smoking status: Former smoker Tobacco type: cigarettes Second hand tobacco smoke exposure: Yes Smoking end date: 01/10/75 Alcohol intake: never Substance use: never Substance use type: does not use Living arrangements: with family Additional occupation/education comments: ANUM Gender identity (if verbalized by the patient): Female Spiritual care concerns: No Agree to blood products: Yes Meds Home Medications and Allergies Home Medications Medication Instructions Recorded Confirmed Type duloxetine 60 mg PO DAILY 11/13/19 04/10/21 History blood sugar diagnostic [OneTouch #100 each 02/02/20 Rx Verio] lancets [OneTouch UltraSoft #100 each 02/02/20 Rx Lancets] pen needle, diabetic [Ultra-Thin #100 each 02/02/20 Rx II Ins Pen [place]] Adults Multivitamin 1 tab-cap PO DAILY 03/21/21 04/10/21 History calcium carb-vitamin D3-vit K2 1 cap PO DAILY 03/21/21 04/10/21 History metformin 1,000 mg PO QACDINNER 03/21/21 04/10/21 History pantoprazole 40 mg PO DAILY 03/21/21 04/10/21 History Allergies Allergy/AdvReac Type Severity Reaction Status Date / Time Penicillins Allergy Severe Rash Verified 04/10/21 08:11 Vital Signs Vital Signs - 24 hr 04/10/21 08:12 Temperature 97.2 F L Pulse Rate 100 Respiratory Rate 18 Blood Pressure 137/73 Pulse Oximetry 98 Exam Const: General: comfortable and no acute distress HENMT: General nose exam: Normal nares present Eyes: General: appearance normal, both eyes and all related structures Neck: Neck: no JVD Resp: Auscultation: clear to auscultation
[2021-04-10 09:38] VITALS: BP 108/62; PULSE 74; RESP 19; O2SAT 97
[2021-04-10 09:48] VITALS: BP 105/63; PULSE 71; RESP 16; O2SAT 97
[2021-04-10 09:58] VITALS: BP 103/67; PULSE 66; RESP 109; O2SAT 100
== END 2021-04-10 10:12 | disposition home or self-care (01) ==
PROVIDERS: PCP Family Medicine Adolescent Medicine; Visit Provider Internal Medicine Gastroenterology
PROC: 0DJ08ZZ Inspection of Upper Intestinal Tract, Via Natural or Artificial Opening Endoscopic (ICD-10-PCS; CPT 43235; principal; 2021-04-10 09:00)
DX: Z12.11 Encounter for screening for malignant neoplasm of colon (principal); K64.8 Other hemorrhoids; Z86.010 Personal history of colon polyps; K22.70 Barrett's esophagus without dysplasia; K44.9 Diaphragmatic hernia without obstruction or gangrene; K31.7 Polyp of stomach and duodenum; K21.00 Gastro-esophageal reflux disease with esophagitis, without bleeding; E13.9 Other specified diabetes mellitus without complications; Z86.711 Personal history of pulmonary embolism; Z79.84 Long term (current) use of oral hypoglycemic drugs; Z87.891 Personal history of nicotine dependence; E66.9 Obesity, unspecified; Z68.28 Body mass index [BMI] 28.0-28.9, adult
CPT/HCPCS: 43239; G0105; 82948; 88305; J2704; J7120

== ENCOUNTER 2022-03-25 16:09 | Outpatient (CLI) | payer OTHER, SELFPAY ==
--- NOTE | ~2022-03-25 | DEXA_ITS ---
Bone Density Report Name: MORENO PEDRAZA Age: 71 Sex: Female Ethnicity: White Date of : 1950 Indication: postmenopausal; screening for osteoporosis; Referring Provider: GODWIN ARROYO Study: Bone densitometry was performed. Exam Date: March 25, 2022 Accession number: [id number] Bone Density: Region BMD T-score Z-score Classification AP Spine(L1-L4) 1.048 0.0 2.1 Normal Femoral Neck (Left) 0.905 0.5 2.3 Normal Total Hip (Left) 0.966 0.2 1.7 Normal Femoral Neck (Right) 0.880 0.3 2.1 Normal Total Hip (Right) 0.908 -0.3 1.2 Normal Total Hip Mean 0.937 -0.1 1.5 Normal World Health Organization criteria for BMD impression classify patients as: Normal (T-score at or above -1.0), Osteopenia (T-score between -1.0 and -2.5), or Osteoporosis (T-score at or below -2.5). 10-year Fracture Risk: FRAX not reported because: All T-scores for Spine Total, Hip Total, Femoral Neck at or above -1.0 Clinical Information Provided by Patient: Has used the following medications: Vitamin D, Calcium Patient maximum height was 65 Menopause Age: 53 No regular weight bearing exercise Drinks caffeinated beverages Onset of menses at age 13 Number of children 2 Impression: The patient has normal bone mass. Discussion: BONE DENSITY IS ABOVE THE MINIMUM DESIRABLE LEVEL AT ALL SKELETAL SITES TESTED. This patient?s bone mineral density is above the minimum desirable level (T-score -1.0 or better) at all sites measured. The patient should follow a healthful lifestyle (good nutrition with adequate calcium and vitamin D, and appropriate weight-bearing exercise). Follow-Up: Consider repeating this study in 5 years or sooner if there is some new clinical indication. Reported by: SUMAN on 03/25/2022 4:36:00 PM. Reviewed, dictated and finalized at [facility]
== END 2022-03-25 16:10 | disposition home or self-care (01) ==
PROVIDERS: PCP Family Medicine Adolescent Medicine; Visit Provider Family Medicine Adolescent Medicine
DX: Z78.0 Asymptomatic menopausal state (principal)
CPT/HCPCS: 77080

== ENCOUNTER 2022-04-07 10:12 | Outpatient (CLI) | payer OTHER, SELFPAY ==
--- NOTE | ~2022-04-07 | MM_ITS ---
EXAMINATION: MM screening ezra BI w boo HISTORY: Screening TECHNIQUE: Craniocaudal and mediolateral oblique 3-D tomosynthesis images were obtained and synthetic 2-D images were generated. CAD analysis was submitted and interpreted. COMPARISON: 03/09/2009 BREAST PARENCHYMAL COMPOSITION: There are scattered areas of fibroglandular density. FINDINGS: There is no evidence of suspicious mass, calcification, or architectural distortion to sugg est malignancy in either breast. There has been no suspicious interval change. IMPRESSION: 1. No mammographic evidence of malignancy. 2. Recommend routine screening mammography in one year. BI-RADS Category 1: Negative. Reviewed, dictated and finalized at location A.
== END 2022-04-07 10:13 | disposition home or self-care (01) ==
LOC: ANHIMG 10:14
PROVIDERS: PCP Family Medicine Adolescent Medicine; Visit Provider Family Medicine Adolescent Medicine
DX: Z12.31 Encounter for screening mammogram for malignant neoplasm of breast (principal)
CPT/HCPCS: 77063; 77067

== ENCOUNTER 2022-07-02 01:56 | Day surgery (SDC) | payer OTHER, SELFPAY ==
[2022-06-23 14:40] VITALS: BMI 28.2
[2022-07-02 07:45] VITALS: BP 139/74; PULSE 84; RESP 20; TEMP 36; O2SAT 98
[2022-07-02] MEDS: LACTATED RINGERS 1,000 ML 150 ML IV CONT (07:56)
[2022-07-02 07:58] LABS: Glucose Point of Care 101 mg/dl (65-105)
--- NOTE | 2022-07-02 08:34 | WPDANESEPPF ---
Anes - Initial Pre Proc Eval Procedure: Operation Date: 07/02/22 09:00 Proposed Procedures p Esophagogastroduodenoscopy - Cornelius Obregon MD Date/Time: 07/02/22 08:34 Surgeon: Cornelius Obregon MD Pre Op Diagnosis: GERD Patient Data Age: 71 Gender: F Height: 1.65 m Weight: 78.1 kg Last Vital Signs Temp 96.8 F L 07/02/22 07:45 Pulse 84 07/02/22 07:45 Resp 20 07/02/22 07:45 BP 139/74 07/02/22 07:45 Pulse Ox 98 07/02/22 07:45 O2 Del Method Room Air 07/02/22 07:45 Allergies Allergy/AdvReac Type Severity Reaction Status Date / Time Penicillins Allergy Severe Rash Verified 07/02/22 07:44 Home Medications Medication Instructions Recorded Confirmed Type blood sugar diagnostic (OneTouch #100 ea 02/02/20 06/23/22 Rx Verio test strips) lancets (OneTouch UltraSoft #100 ea 02/02/20 06/23/22 Rx Lancets) Adults Multivitamin 1 tab-cap PO DAILY 03/21/21 06/23/22 History calcium carb-vitamin D3-vit K2 1 cap PO DAILY 03/21/21 06/23/22 History blood sugar diagnostic (Contour #200 ea 11/04/21 06/23/22 Rx Next Test Strips) metformin 500 mg tablet,extended 1,000 mg PO QACDINNER #180 tabs 04/02/22 06/23/22 Rx release 24 hr duloxetine 60 mg capsule,delayed See Rx Instructions .Route 04/09/22 06/23/22 Rx release .COMPLEX #90 caps pantoprazole 40 mg tablet,delayed 40 mg PO BID 05/29/22 06/23/22 History release metoclopramide HCl 10 mg tablet See Rx Instructions .Route 06/26/22 Rx .COMPLEX #30 tabs Laboratory Tests 07/02/22 07:51 POC Capillary Glucose 101 mg/dl mg/dl (65-105) Patient hx anesthesia problems: none Family hx anesthesia problems: none Results Review: All pre-operative results and documents have been reviewed as part of the pre-operative evaluation. [facility] Past Medical History Medical History (Updated 07/01/22 @ 10:59 by Robyn Dia CMA) Colon polyps Diabetes 1.5, managed as type 2 GERD (gastroesophageal reflux disease) Pulmonary embolism 1969' Surgical History Surgical History History of colon resection Partial; 2013 History of laparoscopy Infertility workup Family History Family History Sibling Acute myocardial infarction Lung cancer Father Chronic obstructive pulmonary disease Hypertension Lung cancer Mother Diabetes mellitus Hypertension Social History Social History Social History: Ms. Dow lives at home with her . She has two daughters. She designates her Rich as her surrogate decision maker and she would like to be a full code. Smoking packs per day: 0.5 Smoking cigarettes per day: 10.0 Years smoked: 10 Smoking pack-years: 5.00 Smoking status: Former smoker Tobacco type: cigarettes Second hand tobacco smoke exposure: Yes Smoking end date: 01/10/75 Alcohol intake: never Drinks per week: 1 Alcohol use details: Social alcohol use a couple times per year. Substance use: never Substance use type: does not use Living arrangements: with family Gender identity (if verbalized by the patient): Female Spiritual care concerns: No Agree to blood products: Yes Anes - Eval Final PreProcedure Day of Procedure 07/02/22 08:34 Patient weight: normal Heart: regular rate and rhythm Lungs: clear to auscultation Airway: Mallampati scale class II Neurological: alert and oriented Last oral intake: >/= 8 hours ASA classification: III Emergent: no Anesthetic plan: proceed Anesthesia type and monitoring: general GIVS and standard monitoring Results Review: All pre-operative results and documents have been reviewed as part of the pre-operative evaluation. Informed Consent: The patient's anesthetic plan and its attendant risks and benefits were discussed with the patien
--- NOTE | 2022-07-02 08:47 | WPDHPUPDATE1 ---
History and Physical Update Update Date/Time: 07/02/22 08:47 History and Physical has been reviewed, including an updated exam of the patient. There are NO changes in the patient's condition. Risks, benefits, and alternatives have been discussed and questions answered. Patient agrees to proceed with procedure.
[2022-07-02 09:01] VITALS: BP 113/56; PULSE 71; RESP 16; O2SAT 97
[2022-07-02 09:11] VITALS: BP 114/60; PULSE 75; RESP 16; O2SAT 96
[2022-07-02 09:21] VITALS: BP 120/68; PULSE 71; RESP 16; O2SAT 100
== END 2022-07-02 09:33 | disposition home or self-care (01) ==
PROVIDERS: PCP Family Medicine Adolescent Medicine; Visit Provider Internal Medicine Gastroenterology
PROC: 0DJ08ZZ Inspection of Upper Intestinal Tract, Via Natural or Artificial Opening Endoscopic (ICD-10-PCS; CPT 43235; principal; 2022-07-02 09:00)
DX: K21.9 Gastro-esophageal reflux disease without esophagitis (principal); K22.70 Barrett's esophagus without dysplasia; K44.9 Diaphragmatic hernia without obstruction or gangrene; K31.7 Polyp of stomach and duodenum; E13.9 Other specified diabetes mellitus without complications; Z86.711 Personal history of pulmonary embolism; Z79.84 Long term (current) use of oral hypoglycemic drugs; Z87.891 Personal history of nicotine dependence
CPT/HCPCS: 43239; 82948; 88305; J2704; J7120

== ENCOUNTER 2023-10-16 09:47 | Outpatient (CLI) | payer OTHER, SELFPAY ==
[2023-10-16 10:20] LABS: Hematocrit 38.5 % (37.0-47.0); Hemoglobin 12.2 g/dL (12.0-15.0); Mean Corpuscular HGB Conc 31.7 g/dl (32-36); Mean Corpuscular Hemoglobin 27.9 pg (26-34); Mean Corpuscular Volume 88.1 fl (80-100); Mean Platelet Volume 11.6 fl (7.4-10.4); Platelet Count Result 263 k/mm3 (150-375); Red Blood Count 4.37 M/mm3 (4.2-5.4); Red Cell Distribution Width 12.9 % (11.5-14.5); White Blood Count 4.8 K/mm3 (4.5-10.0)
[2023-10-16 10:33] LABS: Alanine Aminotransferase 23 U/L (6-35); Albumin Level 4.3 g/dL (3.5-5.1); Alkaline Phosphatase 61 U/L (38-126); Anion Gap 11 mmol/L (8-16); Aspartate Amino Transferase 25 U/L (14-36); Bilirubin,Total 0.6 mg/dL (0.2-1.3); Blood Urea Nitrogen 14 mg/dL (7-17); Calcium 9.5 mg/dL (8.4-10.2); Carbon Dioxide 22 mmol/L (22-30); Chloride 106 mmol/L (98-107); Estimated Glomerular Filt Rate 55; Glucose 96 mg/dL (65-110); Potassium 3.9 mmol/L (3.4-5.0); Sodium 139 mmol/L (137-145)
[2023-10-16 10:37] LABS: Hemoglobin A1C 5.6 % (<5.7)
[2023-10-16 10:48] LABS: MALB Creatinine Ratio 6.6 mg/g (0-30); Microalbumin Urine Random 9.5 mg/L (0-16.7)
== END 2023-10-16 09:48 | disposition home or self-care (01) ==
PROVIDERS: PCP Family Medicine Adolescent Medicine; Visit Provider Family Medicine Adolescent Medicine
DX: K22.70 Barrett's esophagus without dysplasia (principal); R53.83 Other fatigue; E11.9 Type 2 diabetes mellitus without complications
CPT/HCPCS: 36415; 80053; 82043; 83036; 84443; 85027

== ENCOUNTER 2023-12-05 18:36 | Emergency (ER) | payer OTHER, SELFPAY ==
[2023-12-05] VITALS (13 sets, daily range): BP systolic 140–156; BP diastolic 79–95; PULSE 87–110; RESP 10–20; TEMP 36.5; O2SAT 95–100
--- NOTE | 2023-12-05 18:55 | PC.NURSE ---
ON 12/05/2023 AT 1855 JULIANNE (PHARMACIST) FROM [place] [facility] CALLED TO OFFER GUIDANCE ABOUT THIS PT. HE STATED THAT GUIDELINES RECOMMEND EKG, CARDIAC MONITORING, SEIZURE PRECAUTIONS, BASELINE LABS, 6-8 HOURS OF OBSERVATION FROM ONSET OF INGESTION. JULIANNE GAVE AND A CALLBACK NUMBER OF . EDP; DR. Renan ARANA AND WENDY Cazares RN (ONCOMING FORK REPAIRER RN). MADE AWARE OF THESE RECOMMENDATIONS AT THIS TIME.
--- NOTE | 2023-12-05 19:07 | ECG_ITS ---
Measurements Intervals Errol Rate: 106 P: 41 AR: 140 QRS: 255 QRSD: 89 T: 58 QT: 333 QTc: 444 Interpretive Statements SINUS TACHYCARDIA PATTERN CONSISTENT WITH PULMONARY DISEASE POSSIBLE RIGHT VENTRICULAR HYPERTROPHY [SOME/ALL OF: PROMINENT R IN V1, LATE TRANSITION, RAD, BOUBACAR, SSS] ST DEPRESSION ANTEROLATERAL LEADS CONSIDER MYOCARDIAL ISCHEMIA LOW-VOLTAGE QRS IN LIMB LEADS ABNORMAL ECG NO PREVIOUS ECG AVAILABLE FOR COMPARISON Electronically Signed On 12-06-2023 18:11:00 [employer] by Dionicio Howe M.D.
--- NOTE | 2023-12-05 19:28 | PC.NURSE ---
Assumed care of pt. Bedside report from JULITA Hansen. Pt resting quietly per cart with daughter at bedside.
[2023-12-05] MEDS: SODIUM CHLORIDE 0.9% IV 1,000 ML 999 ML IV CONT (20:06)
[2023-12-05 20:12] LABS: Basophils Percent Auto 0.7 % (0.2-1.2); Eosinophils Absolute Auto 0.2 K/mm3 (0-0.3); Hematocrit 42.4 % (37.0-47.0); Immature Granulocyte Absolute 0.01 K/mm3 (0.00-0.031); Immature Granulocyte Percent A 0.2 % (0-0.5); Lymphocytes Absolute Auto 0.89 K/mm3 (0.9-3.2); Lymphocytes Percent Auto 14.8 % (18.3-44.2); Mean Corpuscular HGB Conc 30.7 g/dl (32-36); Mean Corpuscular Hemoglobin 26.3 pg (26-34); Mean Corpuscular Volume 85.7 fl (80-100); Mean Platelet Volume 12.1 fl (7.4-10.4); Monocytes Absolute Auto 0.5 K/mm3 (0.1-0.6); Neutrophils Absolute Auto 4.4 K/mm3 (1.3-6.7); Neutrophils Percent Auto 72.3 % (45.5-73.1); Platelet Count Result 284 k/mm3 (150-375); Red Blood Count 4.95 M/mm3 (4.2-5.4); Red Cell Distribution Width 14.1 % (11.5-14.5)
--- NOTE | 2023-12-05 20:16 | ED.OVERDOSE ---
HPI - Overdose General Chief Complaint: Overdose Stated Complaint: accidental overdose Time Seen by Provider: 12/05/23 18:44 History of Present Illness HPI Narrative: Patient is a 73-year-old female presenting after accidental overdose. Patient states that she takes bupropion in the morning and she takes metformin at night. They look very similar and tonight she accidentally took 2 bupropions instead of metformin. she took a total of 3 bupropion today for a total of 900 mg. she called poison Control who advised that she come in for evaluation. She states that she feels a bit anxious and shaky but otherwise denies complaints. Related Data Home Medications Medication Instructions Recorded Confirmed Adults Multivitamin 1 tab-cap PO DAILY 03/21/21 09/02/23 calcium carb-vitamin D3-vit K2 1 cap PO DAILY 03/21/21 09/02/23 Allergies Allergy/AdvReac Type Severity Reaction Status Date / Time Penicillins Allergy Severe Rash Verified 09/02/23 11:12 Review of Systems Review of Systems: All systems reviewed & are unremarkable except as noted in HPI and below PMFSH Past Medical History Medical History Colon polyps DKA (diabetic ketoacidosis) GERD (gastroesophageal reflux disease) Pulmonary embolism 1969' Surgical History Surgical History History of colon resection Partial; 2013 History of laparoscopy Infertility workup Family History Family History Sibling Acute myocardial infarction Lung cancer Father Chronic obstructive pulmonary disease Hypertension Lung cancer Mother Diabetes mellitus Hypertension Social History Social History Social History: Ms. Dow lives at home with her . She has two daughters. She designates her Rich as her surrogate decision maker and she would like to be a full code. Smoking packs per day: 0.75 Smoking cigarettes per day: 15.0 Years smoked: 10 Smoking pack-years: 7.50 Smoking status: Former smoker Tobacco type: cigarettes Second hand tobacco smoke exposure: Yes Smoking end date: 01/10/75 Alcohol intake: current Drinks per week: 1 Alcohol use details: Social alcohol use a couple times per year. Substance use: never Substance use type: does not use Lack of Transportation: No Lack of Food: Never True Current Housing: I Have Housing Concerned About Future Housing: No Difficulty Paying Gas/Electric Bills: No Difficulty Paying for Meds: No Currently Unemployed: No Education: Trade/Vocational Certificate Difficulty w/ Childcare or Family Care: No Living arrangements: with family Occupation/Education: retired Gender identity (if verbalized by the patient): Female Spiritual care concerns: No Agree to blood products: Yes Exam Narrative: GENERAL: Nontoxic, no acute distress, pleasant and cooperative, mildly shaky HEAD: Normocephalic, atraumatic. EYES: PERRLA and EOMI. ENT: Mucous membranes moist. NECK: Supple. CHEST: Clear to auscultation. No respiratory distress. HEART: Regular rate and rhythm EXTREMITIES: Normal range of motion. No edema. SKIN: Warm, dry, no rash. NEURO: No focal deficits. Alert and oriented x3. PSYCH: Normal mood and affect. Course Vital Signs Vital signs: Vital Signs Temperature 97.7 F 12/05/23 18:37 Pulse Rate 110 H 12/05/23 18:37 Respiratory Rate 20 12/05/23 18:37 Blood Pressure 149/95 H 12/05/23 18:37 Pulse Oximetry 95 12/05/23 18:37 Oxygen Delivery Room Air 12/05/23 18:37 Temperature 97.7 F 12/05/23 18:37 Pulse Rate 135 H 12/06/23 02:30 Respiratory Rate 22 H 12/06/23 02:30 Blood Pressure 179/95 H 12/06/23 02:30 Pulse Oximetry 100 12/06/23 02:30 Oxygen Delivery Room Air 12/05/23 19:05
[2023-12-05 20:23] LABS: Alanine Aminotransferase 23 U/L (6-35); Alkaline Phosphatase 64 U/L (38-126); Anion Gap 13 mmol/L (8-16); Aspartate Amino Transferase 31 U/L (14-36); Bilirubin,Total 0.6 mg/dL (0.2-1.3); Blood Urea Nitrogen 19 mg/dL (7-17); Calcium 10.6 mg/dL (8.4-10.2); Carbon Dioxide 20 mmol/L (22-30); Chloride 108 mmol/L (98-107); Estimated CRCL calculation 47 ml/min; Estimated Glomerular Filt Rate 55; Glucose 112 mg/dL (65-110); Sodium 141 mmol/L (137-145)
--- NOTE | 2023-12-05 22:43 | PC.NURSE ---
Poison control called for update. Pt does have small tremor and states feels a little nervous. Poison control recommended small dose of benzo. Will pass to ERP. Pt otherwise has had no change in status.
--- NOTE | 2023-12-05 22:53 | PC.NURSE ---
Pt reports tremors and nervousness has improved. Discussed with Dr Tolbert and will hold on benzos at this time.
[2023-12-06 00:01] VITALS: BP 161/87; PULSE 104; RESP 12; O2SAT 100
[2023-12-06 00:17] VITALS: BP 152/81; PULSE 106; RESP 14; O2SAT 99
[2023-12-06 00:46] VITALS: BP 149/84; PULSE 108; RESP 14; O2SAT 100
[2023-12-06 02:30] VITALS: BP 179/95; PULSE 135; RESP 22; O2SAT 100
== END 2023-12-06 02:30 | disposition home or self-care (01) ==
PROVIDERS: Emergency Provider Emergency Medicine; PCP Family Medicine Adolescent Medicine
DX: T43.291A Poisoning by other antidepressants, accidental (unintentional), initial encounter (principal); K21.9 Gastro-esophageal reflux disease without esophagitis; Z86.010 Personal history of colon polyps; Z86.711 Personal history of pulmonary embolism; Z87.891 Personal history of nicotine dependence; Z90.49 Acquired absence of other specified parts of digestive tract; Z79.84 Long term (current) use of oral hypoglycemic drugs; R00.0 Tachycardia, unspecified; R94.31 Abnormal electrocardiogram [ECG] [EKG]
CPT/HCPCS: 36415; 80053; 85025; 93005; 96360; 99284; J7030

== ENCOUNTER 2024-04-20 08:01 | Outpatient (NON) | payer OTHER, SELFPAY | END 2024-04-20 08:02 | disposition home or self-care (01) | LOC: ANHLAB 04-21 08:03 | PROVIDERS: PCP Family Medicine Adolescent Medicine; Visit Provider Internal Medicine Gastroenterology | DX: K22.70 Barrett's esophagus without dysplasia (principal) | CPT/HCPCS: 88305 ==

== ENCOUNTER 2024-04-20 09:40 | Day surgery (SDC) | payer OTHER, SELFPAY ==
[2024-04-12 08:36] VITALS: BMI 28.1
[2024-04-13 12:08] VITALS: BMI 26.6
--- NOTE | 2024-04-19 13:51 | WPDANESEPPF ---
Anes - Initial Pre Proc Eval Procedure: Operation Date: 04/20/24 13:00 Proposed Procedures p Esophagogastroduodenoscopy - Buddy Martinez MD Date/Time: 04/19/24 13:51 Surgeon: Buddy Martinez MD Pre Op Diagnosis: Guevara's esophagus Patient Data Age: 73 Gender: F Height: 1.65 m Weight: 72.5 kg Allergies Allergy/AdvReac Type Severity Reaction Status Date / Time Penicillins Allergy Severe Rash Verified 04/20/24 12:08 Home Medications Medication Instructions Recorded Confirmed Type blood sugar diagnostic (OneTouch #100 ea 02/02/20 02/01/24 Rx Verio test strips) Adults Multivitamin 1 tab-cap PO DAILY 03/21/21 04/20/24 History calcium carb-vitamin D3-vit K2 1 cap PO DAILY 03/21/21 04/20/24 History blood sugar diagnostic (Contour #200 ea 11/04/21 02/01/24 Rx Next Test Strips) pantoprazole 40 mg tablet,delayed See Rx Instructions .Route 12/17/23 04/20/24 Rx release .COMPLEX #180 tabs bupropion HCl 150 mg 24 hr tablet, 150 mg PO QAM #90 tabs 02/01/24 04/20/24 Rx extended release metformin 500 mg tablet,extended 500 mg PO QACDINNER #90 tabs 02/01/24 04/20/24 Rx release 24 hr lancets (Microlet Lancet) #100 ea 02/11/24 Rx metoclopramide HCl 10 mg tablet See Rx Instructions .Route 04/13/24 04/20/24 History .COMPLEX PRN Heartburn Patient hx anesthesia problems: none Family hx anesthesia problems: none Results Review: All pre-operative results and documents have been reviewed as part of the pre-operative evaluation. [facility] Past Medical History Medical History (Updated 04/20/24 @ 12:14 by Buddy Martinez MD) Colon polyps Diabetes type 2, controlled DKA (diabetic ketoacidosis) Gastric polyps GERD (gastroesophageal reflux disease) Pulmonary embolism 1969' Surgical History Surgical History History of colon resection Partial; 2013 History of laparoscopy Infertility workup Family History Family History Sibling Acute myocardial infarction Lung cancer Father Chronic obstructive pulmonary disease Hypertension Lung cancer Mother Diabetes mellitus Hypertension Social History Social History Social History: Ms. Dow lives at home with her . She has two daughters. She designates her Royce as her surrogate decision maker and she would like to be a full code. Smoking packs per day: 0.75 Smoking cigarettes per day: 15.0 Years smoked: 10 Smoking pack-years: 7.50 Smoking status: Never smoker Tobacco type: cigarettes Second hand tobacco smoke exposure: Yes Smoking end date: 01/10/75 Alcohol intake: never Drinks per week: 1 Alcohol use details: Social alcohol use a couple times per year. Substance use: never Substance use type: does not use Lack of Transportation: No Lack of Food: Never True Current Housing: I Have Housing Concerned About Future Housing: No Difficulty Paying Gas/Electric Bills: No Difficulty Paying for Meds: No Currently Unemployed: No Education: Trade/Vocational Certificate Difficulty w/ Childcare or Family Care: No Living arrangements: alone Occupation/Education: retired Gender identity (if verbalized by the patient): Female Spiritual care concerns: No Agree to blood products: Yes Anes - Eval Final PreProcedure Day of Procedure 04/19/24 13:51 Patient weight: overweight Heart: regular rate and rhythm Lungs: clear to auscultation Airway: Mallampati scale class II Neurological: alert and oriented Last oral intake: >/= 8 hours ASA classification: III Emergent: no Anesthetic plan: proceed Anesthesia type and monitoring: general GIVS and standard monitoring Results Review: All pre-operative results and documents have been reviewed as part of the pre-operative evaluation. Informed Consent: The patient's
[2024-04-20 12:00] VITALS: BP 133/80; PULSE 93; RESP 18; TEMP 37; O2SAT 96
--- NOTE | 2024-04-20 12:12 | PM.HPGS ---
History of Present Illness History of Present Illness Consent: Risks, benefits, and alternatives have been discussed and questions answered. Patient agrees to proceed with procedure. Chief complaint: Guevara's esophagus Narrative: Alison Dow is a 73 year old female presents for screening follow-up EGD. Patient has an underlying history of GE reflux disease. She was diagnosed with Guevara's esophagus several years ago. Recent EGD 2 years ago was unremarkable with no evidence of dysplasia. GE reflux currently appears controlled taking pantoprazole 40mg p.o. b.i.d.. Patient currently denies any dysphagia. Her weight is stable. She has no ongoing heartburn at present. She has had no bleeding. Past medical history is significant for partial colon resection and history of colon polyps. She obtains frequent follow-up colonoscopies and is up-to-date with this. Review of Systems Review of Systems: All systems reviewed & are unremarkable except as noted in HPI and below PMFSH Past Medical History Medical History (Updated 04/20/24 @ 12:14 by Buddy Martinez MD) Colon polyps Diabetes type 2, controlled DKA (diabetic ketoacidosis) Gastric polyps GERD (gastroesophageal reflux disease) Pulmonary embolism 1969' Surgical History Surgical History History of colon resection Partial; 2013 History of laparoscopy Infertility workup Family History Family History Sibling Acute myocardial infarction Lung cancer Father Chronic obstructive pulmonary disease Hypertension Lung cancer Mother Diabetes mellitus Hypertension Social History Social History Social History: Ms. Dow lives at home with her . She has two daughters. She designates her Rich as her surrogate decision maker and she would like to be a full code. Smoking packs per day: 0.75 Smoking cigarettes per day: 15.0 Years smoked: 10 Smoking pack-years: 7.50 Smoking status: Never smoker Tobacco type: cigarettes Second hand tobacco smoke exposure: Yes Smoking end date: 01/10/75 Alcohol intake: never Drinks per week: 1 Alcohol use details: Social alcohol use a couple times per year. Substance use: never Substance use type: does not use Lack of Transportation: No Lack of Food: Never True Current Housing: I Have Housing Concerned About Future Housing: No Difficulty Paying Gas/Electric Bills: No Difficulty Paying for Meds: No Currently Unemployed: No Education: Trade/Vocational Certificate Difficulty w/ Childcare or Family Care: No Living arrangements: alone Occupation/Education: retired Gender identity (if verbalized by the patient): Female Spiritual care concerns: No Agree to blood products: Yes Meds Home Medications and Allergies Home Medications Medication Instructions Recorded Confirmed Type blood sugar diagnostic (OneTouch #100 ea 02/02/20 02/01/24 Rx Verio test strips) Adults Multivitamin 1 tab-cap PO DAILY 03/21/21 04/20/24 History calcium carb-vitamin D3-vit K2 1 cap PO DAILY 03/21/21 04/20/24 History blood sugar diagnostic (Contour #200 ea 11/04/21 02/01/24 Rx Next Test Strips) pantoprazole 40 mg tablet,delayed See Rx Instructions .Route 12/17/23 04/20/24 Rx release .COMPLEX #180 tabs bupropion HCl 150 mg 24 hr tablet, 150 mg PO QAM #90 tabs 02/01/24 04/20/24 Rx extended release metformin 500 mg tablet,extended 500 mg PO QACDINNER #90 tabs 02/01/24 04/20/24 Rx release 24 hr lancets (Microlet Lancet) #100 ea 02/11/24 Rx metoclopramide HCl 10 mg tablet See Rx Instructions .Route 04/13/24 04/20/24 History .COMPLEX PRN Heartburn Allergies Allergy/AdvReac Type Severity Reaction Status Date / Time Penicillins Allergy Severe Rash Verified 04/20/24 12:08 Exam Narrative:
[2024-04-20 12:15] VITALS: BMI 26.9
[2024-04-20] MEDS: LACTATED RINGERS 1,000 ML 150 ML IV CONT (12:19)
[2024-04-20 12:25] LABS: Glucose Point of Care 89 mg/dl (65-105)
[2024-04-20 12:43] VITALS: BP 96/51; PULSE 95; RESP 14; O2SAT 96
[2024-04-20 12:53] VITALS: BP 117/95; PULSE 79; RESP 16; O2SAT 98
[2024-04-20 13:03] VITALS: BP 106/72; PULSE 77; RESP 16; O2SAT 98
--- NOTE | 2024-04-20 15:07 | WPDANESPN ---
Anes - Prog Note Post-Op Date/Time: 04/20/24 15:07 Cardiovascular status: normal Respiratory status: normal Airway patency: baseline Mental status: baseline Post-Op hydration status: normal Vital Signs: Last Vital Signs Temp 37.0 C 04/20/24 12:00 Pulse 77 04/20/24 13:03 Resp 16 04/20/24 13:03 BP 106/72 04/20/24 13:03 Pulse Ox 98 04/20/24 13:03 O2 Del Method Room Air 04/20/24 13:03 Pain Score (VAS): 0 I/O: Intake & Output 04/19/24 04/20/24 04/20/24 23:59 07:59 15:59 Intake Total 300 Balance 300 04/20/24 12:21 POC Capillary Glucose 89 Post-procedural complaints: none Patient Feedback: Patient satisfied with anesthetic care. Other Findings: Patient vital signs back to baseline. Patient denies nausea and vomiting. Patient's pain under control. Patient OK for discharge.
== END 2024-04-20 13:15 | disposition home or self-care (01) ==
PROVIDERS: PCP Family Medicine Adolescent Medicine; Visit Provider Internal Medicine Gastroenterology
PROC: 0DJ08ZZ Inspection of Upper Intestinal Tract, Via Natural or Artificial Opening Endoscopic (ICD-10-PCS; CPT 43235; principal; 2024-04-20 13:00)
DX: K22.70 Barrett's esophagus without dysplasia (principal); K31.7 Polyp of stomach and duodenum; K44.9 Diaphragmatic hernia without obstruction or gangrene
CPT/HCPCS: 43251; 43239

== ENCOUNTER 2024-08-28 10:28 | Emergency (ER) | payer OTHER, SELFPAY ==
--- NOTE | ~2024-08-28 | XR_ITS ---
Supine and upright views of the abdomen Clinical history: Abdominal pain Findings: Bowel gas pattern is nonspecific. No evidence for obstruction or free air. No abnormal mass lesion or calcification is seen. Osseous structures are intact. Impression: No significant abnormality is seen. Reviewed, dictated and finalized at [facility]. RIALS CLERK Impression: No significant abnormality is seen.
--- NOTE | 2024-08-28 11:24 | ED_ITS ---
HPI - Female Genitourinary General Chief complaint: Urogenital-Female Stated complaint: uti symptoms Time Seen by Provider: 08/28/24 11:45 Source: patient Mode of arrival: ambulatory Limitations: no limitations History of Present Illness HPI Narrative: Emmie is a 74-year-old female patient presenting to the clinic today with complaints of possible UTI. She reports she started having some right flank pain radiating into the right groin and abdomen last night. Pain is sharp and constant in nature. Rates her pain currently a 6/10. Denies any fevers, chills, body aches, nausea, or vomiting. Denies any vaginal discharge. Related Data Home Medications Medication Instructions Recorded Confirmed Adults Multivitamin 1 tab-cap PO DAILY 03/21/21 08/28/24 calcium carb-vitamin D3-vit K2 1 cap PO DAILY 03/21/21 08/28/24 metoclopramide HCl 10 mg tablet See Rx Instructions .Route 04/13/24 04/20/24 .COMPLEX PRN Heartburn Allergies Allergy/AdvReac Type Severity Reaction Status Date / Time Penicillins Allergy Severe Rash Verified 08/28/24 11:28 Review of Systems Review of Systems: Pertinent positives per HPI. Patient denies any fever, chills, rash, headache, visual changes, dizziness, cough, runny nose, sore throat, shortness of breath, chest pain, palpitations, nausea, vomiting, diarrhea, constipation. [facility] Past Medical History Medical History Colon polyps Diabetes type 2, controlled DKA (diabetic ketoacidosis) Gastric polyps GERD (gastroesophageal reflux disease) Pulmonary embolism Surgical History Surgical History History of colon resection Partial; 2013 History of laparoscopy Infertility workup Family History Family History Sibling Acute myocardial infarction Lung cancer Father Chronic obstructive pulmonary disease Hypertension Lung cancer Mother Diabetes mellitus Hypertension Social History Social History Social History: Ms. Dow lives at home with her . She has two daughters. She designates her Rich as her surrogate decision maker and she would like to be a full code. Smoking packs per day: 0.75 Smoking cigarettes per day: 15.0 Years smoked: 10 Smoking pack-years: 7.50 Smoking status: Never smoker Tobacco type: cigarettes Second hand tobacco smoke exposure: Yes Smoking end date: 01/10/75 Alcohol intake: never Drinks per week: 1 Alcohol use details: Social alcohol use a couple times per year. Substance use: never Substance use type: does not use Lack of Transportation: No Lack of Food: Never True Current Housing: I Have Housing Concerned About Future Housing: No Difficulty Paying Gas/Electric Bills: No Difficulty Paying for Meds: No Currently Unemployed: No Education: Trade/Vocational Certificate Difficulty w/ Childcare or Family Care: No Living arrangements: alone Occupation/Education: retired Gender identity (if verbalized by the patient): Female Spiritual care concerns: No Agree to blood products: Yes Comments At the time of my signature, I reviewed and agree with the nursing past medical, surgical, social, and family history. There is no relevant family history pertinent to the patient complaint. Exam Narrative: General: Well-developed, well nourished, in no apparent distress. Head: Normocephalic, atraumatic. Cardio: Regular rate and rhythm, s1 and s2 normal, no murmur appreciated. Resp: Clear to auscultation bilaterally, no rhonchi, rales, wheezing or rubs. Abdomen: Soft, pliable, bowel sounds present in all quadrants, non-tender to palpation, no organomegly, right CVAT tenderness. Course Course Emergency Course: Portions of this record may have been created with voice recognition software. Level of Care: Express Care Visit Vital Signs Vital signs: Vital signs reviewed MDM - Female Genitourinary MDM Narrative Medical decision making narrative: At the time of visit patient is resting comfortably on the exam table. Patient appears to be nontoxic. Labs: Urinalysis positive for nitrates. We will send urine for culture Diagnostics: KUB x-ray was performed and is negative for any acute abnormality. No kidney stone was visualized. Plan: I suspect patient has UTI. With possible early pyelonephritis. Prescription for Bactrim was sent to the pharmacy. If symptoms worsen patient should go to the emergency room immediately for further evaluation. Supportive measures were discussed with the patient and they voiced understanding discharge instructions and agrees to treatment plan. Return precautions reviewed Differential Diagnosis Differential diagnosis: Likely urinary tract infection, cystitis and other (Ureterolithiasis and nephrolithiasis, pyelonephritis) Imaging Data Radiologist's impression: ITS Impressions Abdomen X-Ray 08/28/24 12:09 Impression: No significant abnormality is seen. Discharge Plan Discharge Clinical Impression: Acute right flank pain UTI (urinary tract infection) Qualifiers: Urinary tract infection type: acute cystitis Hematuria presence: without hematuria Qualified Code(s): N30.00 - Acute cystitis without hematuria Patient Disposition: Home, Self-Care Condition: Stable Instructions: Antibiotic Form, Urinary Tract Infection in Women (ED), Flank Pain (ED) Additional Instructions: There is no blood in your urine or sign of kidney stone on your KUB. I suspect you have urinary tract infection possible early pyelonephritis. Prescription for Bactrim was sent to the pharmacy. We will send urine for culture. Increase fluids and stay well hydrated Wipe front to back. May use wet wipes. Avoid tub baths If sexually active- pee before and after intercourse. Wear cotton panties Avoid tight clothing up against the genitals Follow up with your PCP in 1 week if symptoms persist. Prescriptions: New sulfamethoxazole-trimethoprim [Bactrim DS] 800-160 mg tablet 1 tablet PO Q12H 7 Days Qty: 14 0RF No Action pantoprazole 40 mg tablet,delayed release (DR/EC) See Rx Instructions .ROUTE .COMPLEX Qty: 180 3RF Dose Instruction: TAKE 1 TABLET BY MOUTH TWICE A DAY Rx Instructions: TAKE 1 TABLET BY MOUTH TWICE A DAY metformin 500 mg tablet extended release 24 hr 500 mg PO QACDINNER Qty: 90 3RF bupropion HCl 150 mg tablet extended release 24 hr 150 mg PO QAM Qty: 90 3RF (DME) OneTouch Verio test strips Strip See Rx Instructions .ROUTE .MEDSUPPLY Qty: 100 0RF Rx Instructions: As directed Adults Multivitamin 1 tab-cap PO DAILY calcium carb-vitamin D3-vit K2 1 cap PO DAILY (DME) Contour Next Test Strips Strip See Rx Instructions .Route Qty: 200 1RF Rx Instructions: Test blood sugars twice dialy (DME) lancets [Microlet Lancet] Misc See Rx Instructions .ROUTE .COMPLEX Qty: 100 2RF Dose Instruction: EVERY DAY Rx Instructions: EVERY DAY metoclopramide HCl 10 mg tablet See Rx Instructions .ROUTE .COMPLEX PRN (Reason: Heartburn) Rx Instructions: TAKE 1 TABLET BY MOUTH EVERY DAY AT BEDTIME FOR NAUSEA AND VOMITING Follow-up/Referrals: Tejas Gonsalez MD [Primary Care Provider] - Time of Disposition: 12:20 Quality NIHSS Nursing Documentation ED NIHSS nursing documentation: reviewed/agree
[2024-08-28 11:39] VITALS: BP 135/67; PULSE 74; RESP 16; TEMP 36.1; O2SAT 100
[2024-08-29 10:04] LABS: EDUAAPPEAR Clear; EDUABILI Negative (Negative); EDUABLOOD Negative (Negative); EDUACOLOR1 Yellow; EDUAGLUCOSE Negative (Negative); EDUAKETONE Negative (Negative); EDUALEUKO Negative (Negative); EDUANITRATE Positive (Negative); EDUAPROTEIN Negative (Negative); EDUAUROBILI 0.2
== END 2024-08-28 12:23 | disposition home or self-care (01) ==
PROVIDERS: Emergency Provider Nurse Practitioner Family; PCP Family Medicine Adolescent Medicine
DX: N30.00 Acute cystitis without hematuria (principal); B96.20 Unspecified Escherichia coli [E. coli] as the cause of diseases classified elsewhere; Z87.891 Personal history of nicotine dependence; E11.10 Type 2 diabetes mellitus with ketoacidosis without coma; K21.9 Gastro-esophageal reflux disease without esophagitis; Z86.711 Personal history of pulmonary embolism
CPT/HCPCS: 74018; 81003; 87086; 87186; 99213; G0463

== ENCOUNTER 2024-12-15 10:10 | Outpatient (CLI) | payer OTHER, SELFPAY ==
[2024-12-15 10:53] LABS: Add Urine Microscopic? NO; Appearance Urine Clear (Clear); Bilirubin Urine Negative (Negative); Blood Urine Negative (Negative); Color Urine Yellow (Yellow); Glucose Urine UA Negative (Negative); Ketones Urine Negative (Negative); Leukocyte Esterase Ur Negative LEU/UL (Negative); Nitrate Urine Negative (Negative); Protein Urine Negative (Negative); Specific Grav Ur 1.023 (1.001-1.035); Urobilinogen Urine 0.2 mg/dL (<2.0); pH Urine 5.5 (5.0-9.0)
[2024-12-15 11:28] LABS: Hematocrit 43.1 % (37.0-47.0); Hemoglobin 13.2 g/dL (12.0-15.0); Mean Corpuscular HGB Conc 30.6 g/dl (32-36); Mean Corpuscular Hemoglobin 26.7 pg (26-34); Mean Corpuscular Volume 87.1 fl (80-100); Mean Platelet Volume 12.5 fl (7.4-10.4); Platelet Count Result 288 k/mm3 (150-375); Red Blood Count 4.95 M/mm3 (4.2-5.4); Red Cell Distribution Width 14.8 % (11.5-14.5); White Blood Count 5.4 K/mm3 (4.5-10.0)
--- OUTSIDE RECORDS SUMMARY | 2024-12-15 11:32 | XMS_ITS | Clinical Summary ---
Author Organization [facility] Address [address] [place] [phone] Phone Care Team Providers Care Roofing Supervisor Name Role Phone Buddy Louie DO Unavailable [phone] Tejas Gonsalez MD Primary Care Provider + Allergies Active Allergy Reactions Criticality Noted Date Comments Penicillins Hives,Rash Medications calcium 500 MG Tablet daily. Active Multiple Vitamin (MULTIVITAMINS) Capsule daily. Active polyethylene glycol (MIRALAX) Powder Mix the entire bottle with 64 oz of a clear liquid. Use as directed by the office for colonoscopy prep. 255 g 0 6 Active omeprazole (PRILOSEC) 40 MG CAPSULE DELAYED RELEASE Take 1 Cap by mouth 2 times daily. 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 GERD (gastroesophageal reflux disease) Colon polyps Fatty liver Neoplasm of cecum Immunizations Immunization Administration Dates Next Due Covid-19, Mrna, Lnp-s, Pf, 30 Mcg/0.3 Ml Dose (P jose alberto) 12/30/2020,12/07/2020 Social History Tobacco Use Types Packs/Day Years Used Date Smoking Tobacco: Never Assessed Comments Unknown Sex and Gender Information Value Date Recorded Sex Assigned at Not on file Legal Sex Female 11:35 PM CDT Gender Identity Not on file Sexual Orientation Not on file Plan of Treatment Health Maintenance Due Date Last Done Comments DEXA Bone Density 1950 Hepatitis C Virus (HCV) Screening 1950 TdaP Immunization 1950 Cologuard 2002 Immunochemical Fecal Occult Blood 2002 Mammogram 2002 Pneumococcal Immunization (5 0+ years) (1 of 1 - PCV) 2002 Zoster Immunization (1 of 2) 2002 Colonoscopy 10/25/2020 10/25/2015, 10/25/2015, 06/08/2014 Colorectal Cancer Screening 10/25/2020 Influenza Immunization (#1) 2024 SARS-COV-2 Immunization ( season) 2024 10/15/2021, 12/30/2020, 12/07/2020 Respiratory Syncytial Virus (RSV) Immunization (Adult) (1 - 1-dose 75+ series) 2027 10/25/2015, 06/08/2014 Hepatitis B Immunization Aged Out No longer eligible based on patient's age to complete this topic Meningococcal Immunization (ACWY) Aged Out No longer eligible b ased on patient's age to complete this topic Rotavirus Immunization Aged Out No lo nger eligible based on patient's age to complete this topic Procedures Procedure Name Priority Date/Time Associated Diagnosis Comments COLONOSCOPY Routine 10/25/2015 from Last 3 Months or Most Recently Relevant to Health Maintenance Results * COLONOSCOPY (10/25/2015) Tejas Gonsalez MD PROCEDURE/MINOR SURGICAL ORDERABLES Final Result from Last 3 Months or Most Recently Relevant to Health Maintenance Insurance [facility] Care Teams Roofing Supervisor Relationship Specialty Start Date End Date Tejas Gonsalez MD [address] [place] [address] PCP - General Family Medicine 06/23/18 Buddy Louie DO Gastroenterology 10/25/15
--- OUTSIDE RECORDS SUMMARY | 2024-12-15 11:32 | XMS_ITS | Continuity of Care Document ---
Author Organization [facility] Address [address] [place] [address] Phone Care Team Providers Care Converting Technician Name Role Phone Baldwin OD, Buddy Unavailable Unavailable Advance Directives Directive Yes / No Effective Date File Name No Information Encounters Encounter Description Practice Location Reason(s) For Visit Diagnoses Date Provider Providers Copied on Encounter [facility], [address], [place], [place], [id number], [place] tel:[phone] [facility] No Information 9-200 6 Baldwin OD Buddy. [address] , [address], [place], [address], [place]. tel:[phone] Family History Family Member Type Diagnosis Age At Onset No Information Payers Payer name Insurance type Covered libertarian ID Authoriza tion(s) No Information Social History Type Description Quantity Date Captured Comments Sex Female Smoking Status No Information Chief Complaint And Reason For Visit No Information Reason For Referral Reason For Referral No Information History Of Present Illness Encounter Date Complaint History Of Prese nt Illness No Information Functional Status Date Functional Assessmen t No Information Instructions Date Instruction Additional Infor mation No Information Assessments Type Assessment Date No Information Patient Care Teams Name Effective Dates (start - stop) Status Members No Information
[2024-12-15 11:45] LABS: Alanine Aminotransferase 17 U/L (6-35); Albumin Level 4.7 g/dL (3.5-5.1); Alkaline Phosphatase 63 U/L (38-126); Anion Gap 11 mmol/L (4-12); Aspartate Amino Transferase 22 U/L (14-36); Bilirubin,Total 0.6 mg/dL (0.2-1.3); Blood Urea Nitrogen 17 mg/dL (7-17); Calcium 10.4 mg/dL (8.4-10.2); Carbon Dioxide 26 mmol/L (22-30); Chloride 105 mmol/L (98-107); Estimated Glomerular Filt Rate > 60; Glucose 81 mg/dL (65-110); Magnesium 2.2 mg/dL (1.6-2.3); Potassium 4.2 mmol/L (3.4-5.0); Sodium 142 mmol/L (137-145)
== END 2024-12-15 10:11 | disposition home or self-care (01) ==
LOC: ANHLAB 10:11
PROVIDERS: PCP Family Medicine Adolescent Medicine; Visit Provider Nurse Practitioner
DX: R10.31 Right lower quadrant pain (principal); K21.9 Gastro-esophageal reflux disease without esophagitis; Z90.49 Acquired absence of other specified parts of digestive tract; K22.70 Barrett's esophagus without dysplasia; K44.9 Diaphragmatic hernia without obstruction or gangrene; K31.7 Polyp of stomach and duodenum
CPT/HCPCS: 36415; 80053; 81003; 82607; 83735; 85027

== ENCOUNTER 2025-01-02 08:26 | Outpatient (CLI) | payer OTHER, SELFPAY ==
--- OUTSIDE RECORDS SUMMARY | 2025-01-02 08:50 | XMS_ITS | Continuity of Care Document ---
Author Organization [facility] Address [address] [place] [address] Phone Care Team Providers Care Oil Field Equipment Mechanic Supervisor Name Role Phone Baldwin OD, Buddy Unavailable Unavailable Advance Directives Directive Yes / No Effective Date File Name No Information Encounters Encounter Description Practice Location Reason(s) For Visit Diagnoses Date Provider Providers Copied on Encounter [facility], [address], [place], [place], [id number], [place] tel:[phone] [facility] No Information 9-200 6 Baldwin OD Buddy. [address] , [address], [place], [address], [place]. tel:[phone] Family History Family Member Type Diagnosis Age At Onset No Information Payers Payer name Insurance type Covered alliance party ID Authoriza tion(s) No Information Social History [...]
--- OUTSIDE RECORDS SUMMARY | 2025-01-02 08:50 | XMS_ITS | Clinical Summary ---
Author Organization [facility] Address [address] [place] [phone] Phone Care Team Providers Care Unmanned Equipment Operator Name Role Phone Buddy Louie DO Unavailable [phone] Tejas Gonsalez MD Primary Care Provider [...] Most Recently Relevant to Health Maintenance Insurance [facility] Care Teams Unmanned Equipment Operator Relationship Specialty Start Date End Date Tejas Gonsalez MD [address] [place] [address] PCP - General Family Medicine 06/23/18 Buddy Louie DO Gastroenterology 10/25/15
[2025-01-02 14:53] LABS: Basophils Percent Auto 0.6 % (0.2-1.2); Eosinophils Absolute Auto 0.3 K/mm3 (0-0.3); Eosinophils Percent Auto 6.6 % (0-4.4); Hematocrit 41.5 % (37.0-47.0); Hemoglobin 12.4 g/dL (12.0-15.0); Immature Granulocyte Absolute 0.02 K/mm3 (0.00-0.031); Immature Granulocyte Percent A 0.4 % (0-0.5); Lymphocytes Absolute Auto 0.64 K/mm3 (0.9-3.2); Lymphocytes Percent Auto 13.2 % (18.3-44.2); Mean Corpuscular HGB Conc 29.9 g/dl (32-36); Mean Corpuscular Hemoglobin 26.3 pg (26-34); Mean Corpuscular Volume 88.1 fl (80-100); Mean Platelet Volume 12.4 fl (7.4-10.4); Monocytes Absolute Auto 0.4 K/mm3 (0.1-0.6); Monocytes Percent Auto 7.2 % (2.6-8.5); Neutrophils Absolute Auto 3.5 K/mm3 (1.3-6.7); Platelet Count Result 263 k/mm3 (150-375); Red Blood Count 4.71 M/mm3 (4.2-5.4); Red Cell Distribution Width 14.2 % (11.5-14.5); White Blood Count 4.8 K/mm3 (4.5-10.0)
[2025-01-02 15:41] LABS: Alanine Aminotransferase 17 U/L (6-35); Albumin Level 4.6 g/dL (3.5-5.1); Alkaline Phosphatase 66 U/L (38-126); Anion Gap 10 mmol/L (4-12); Aspartate Amino Transferase 26 U/L (14-36); Bilirubin,Total 0.7 mg/dL (0.2-1.3); Blood Urea Nitrogen 20 mg/dL (7-17); Calcium 10.1 mg/dL (8.4-10.2); Carbon Dioxide 26 mmol/L (22-30); Chloride 106 mmol/L (98-107); Cholesterol 236 mg/dL (0-200); Estimated Glomerular Filt Rate 49; Glucose 82 mg/dL (65-110); HDL Direct 49 mg/dL; Potassium 4.3 mmol/L (3.4-5.0); Sodium 142 mmol/L (137-145); Triglycerides 168 mg/dL (<150)
[2025-01-02 15:53] LABS: LDL Cholesterol Direct 131 mg/dL; Platelet Estimate Adequate (Adequate)
[2025-01-02 15:54] LABS: Anisocytosis 1+; Burr Cells 1+; Schistocytes None Seen
[2025-01-02 17:26] LABS: Hemoglobin A1C 5.6 % (<5.7)
== END 2025-01-02 08:27 | disposition home or self-care (01) ==
LOC: ANHGOSHLAB 08:28
PROVIDERS: PCP Family Medicine Adolescent Medicine; Visit Provider Nurse Practitioner Family
DX: K76.0 Fatty (change of) liver, not elsewhere classified (principal); F33.0 Major depressive disorder, recurrent, mild; E11.9 Type 2 diabetes mellitus without complications; K22.70 Barrett's esophagus without dysplasia; Z29.9 Encounter for prophylactic measures, unspecified
CPT/HCPCS: 36415; 80053; 80061; 82607; 83036; 84443; 85025

== ENCOUNTER 2025-01-09 08:54 | Outpatient (CLI) | payer OTHER, SELFPAY ==
--- NOTE | ~2025-01-09 | CT_ITS ---
EXAMINATION: CT abdomen pelvis w con DATE: 01/09/2025 09:21 INDICATION: Right lower quadrant abdominal pain. TECHNIQUE: Computed tomography (CT) of the abdomen and pelvis was performed with 100 mL Omnipaque-350 intravenous contrast. Automated exposure control and iterative reconstruction technique were employe d. The dose-length product was 424.42 mGy-cm. COMPARISON: 06/08/2014 FINDINGS: Lung bases are clear. Heart size is normal. No pericardial or pleural effusion. Liver size sliding-ty pe hiatal hernia. 7 mm cyst in the right hepatic lobe. Gallbladder, spleen and pancreas are normal. B ilateral adrenal masses measuring 2.3 similar on the right and 1.9 cm on the left which are both with out significant interval change since 2013 most consistent with adenomas. Again seen are a few small macroscopic fat attenuation lesions in both kidneys, the largest on the right measuring 1.1 cm consis tent with angiomyolipomas. Interval partial sigmoidectomy with anastomotic suture line at the distal sigmoid colon. Small bowel and appendix are normal. Decompressed bladder is normal. Again seen are co uple small calcifications in the uterus likely related to degenerated uterine fibroids with additiona l unchanged 2.3 cm subserosal fibroid at the anterior fundus. Bilateral adnexa are unremarkable. No f ree intraperitoneal gas or fluid. No pathologically enlarged abdominal or pelvic lymphadenopathy. Sma ll fat-containing umbilical hernia. Mild to moderate lumbar and lower thoracic spondylosis. Diffuse o steopenia with chronic small bone island at the L3. IMPRESSION: 1. Normal appendix. No acute intra-abdominal/pelvic process. 2. Moderate-sized sliding-type hiatal hernia. 3. Small fat-containing umbilical hernia. 4. No significant change in bilateral adrenal masses, likely adenomas, and a few bilateral renal earl omyolipomas. 5. Fibroid uterus. Reviewed, dictated and finalized at location B. IMPRESSION: 1. Normal appendix. No acute intra-abdominal/pelvic process. 2. Moderate-sized sliding-type hiatal hernia. 3. Small fat-containing umbilical hernia. 4. No significant change in bilateral adrenal masses, likely adenomas, and a fe w bilateral renal angiomyolipomas. 5. Fibroid uterus.
--- OUTSIDE RECORDS SUMMARY | 2025-01-09 09:29 | XMS_ITS | Continuity of Care Document ---
Author Organization [facility] Address [address] [place] [address] Phone Care Team Providers Care Plow Holder Name Role Phone Baldwin OD, Buddy Unavailable Unavailable Advance Directives Directive Yes / No Effective Date File Name No Information Encounters Encounter Description Practice Location Reason(s) For Visit Diagnoses Date Provider Providers Copied on Encounter [facility], [address], [place], [place], [id number], [place] tel:[phone] [facility] No Information 9-200 6 Baldwin OD Buddy. [address] , [address], [place], [address], [place]. tel:[phone] Family History Family Member Type Diagnosis Age At Onset No Information Payers Payer name Insurance type Covered constitution party ID Authoriza tion(s) No Information Social [...]
--- OUTSIDE RECORDS SUMMARY | 2025-01-09 09:29 | XMS_ITS | Clinical Summary ---
Author Organization [facility] Address [address] [place] [phone] Phone Care Team Providers Care Butt Welder Name Role Phone Buddy Louie DO Unavailable Tejas Gonsalez MD Primary Care Provider + [...] Most Recently Relevant to Health Maintenance Insurance [facility] Care Teams Butt Welder Relationship Specialty Start Date End Date Tejas Gonsalez MD [address] [place] [address] PCP - General Family Medicine 06/23/18 Buddy Louie DO Gastroenterology 10/25/15
== END 2025-01-09 08:55 | disposition home or self-care (01) ==
PROVIDERS: PCP Family Medicine Adolescent Medicine; Visit Provider Nurse Practitioner
DX: D25.9 Leiomyoma of uterus, unspecified (principal); K42.9 Umbilical hernia without obstruction or gangrene; K44.9 Diaphragmatic hernia without obstruction or gangrene
CPT/HCPCS: 74177; Q9967

== ENCOUNTER 2025-02-09 14:03 | Outpatient (CLI) | payer OTHER, SELFPAY ==
--- OUTSIDE RECORDS SUMMARY | 2025-02-09 14:52 | XMS_ITS | Continuity of Care Document ---
Author Organization Located [facility] Address [address] [place] [address] Phone Care Team Providers Care Floor Renovator Name Role Phone Baldwin OD, Buddy Unavailable Unavailable Advance Directives Directive Yes / No Effective Date File Name No Information Encounters Encounter Description Practice Location Reason(s) For Visit Diagnoses Date Provider Providers Copied on Encounter [facility], [address], [place], [place], [id number], [place] tel:[phone] [facility] No Information 9-200 6 Baldwin OD Buddy. [address], [place], [address], [place]. tel:[phone] Family History Family Member Type Diagnosis Age At Onset No Information Payers Payer name Insurance type Covered democrat ID Authoriza tion(s) No Information Social History [...]
--- OUTSIDE RECORDS SUMMARY | 2025-02-09 14:52 | XMS_ITS | Clinical Summary ---
Author Organization [facility] Address [address] [place] [phone] Phone Care Team Providers Care Electro Mechanical Assembler Name Role Phone Buddy Louie DO Unavailable [phone] Tejas Gonsalez MD Primary Care Provider [...] Most Recently Relevant to Health Maintenance Insurance [facility] Care Teams Electro Mechanical Assembler Relationship Specialty Start Date End Date Tejas Gonsalez MD [address] [place] [address] PCP - General Family Medicine 06/23/18 Buddy Louie DO Gastroenterology 10/25/15
[2025-02-09 21:37] LABS: Hepatitis C Virus Antibody Negative (Negative)
== END 2025-02-09 14:04 | disposition home or self-care (01) ==
LOC: ANHGOSHLAB 14:04
PROVIDERS: PCP Family Medicine Adolescent Medicine; Visit Provider Nurse Practitioner Family
DX: Z11.59 Encounter for screening for other viral diseases (principal)
CPT/HCPCS: 36415; 86803

== ENCOUNTER 2025-08-21 01:13 | Day surgery (SDC) | payer OTHER, SELFPAY ==
[2025-08-07 12:49] VITALS: BMI 27.1
--- NOTE | 2025-08-21 10:20 | P.PNAN_ITS ---
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 Patient Data Age: 75 Gender: F Height: 1.65 m Weight: 74 kg Allergies Allergy/AdvReac Type Severity Reaction Status Date / Time Penicillins Allergy Severe Rash Verified 08/07/25 12:51 Home Medications ?Medication ?Instructions ?Recorded ?Confirmed ?Type blood sugar diagnostic (OneTouch #100 ea 02/02/2007/13 Rx Verio test strips) Adults Multivitamin 1 tab-cap PO DAILY 03/21/21 08/07/25 History blood sugar diagnostic (Contour #200 ea 11/04/2108/07 Rx Next Test Strips) lancets (Microlet Lancet) #100 ea 10/09/24 08/07/25 Rx pantoprazole 40 mg tablet,delayed See Rx Instructions .Route 12/15/24 08/07/25 Rx release .COMPLEX #180 tabs cholecalciferol (vitamin D3) 25 25 mcg PO DAILY 08/07/25 History mcg (1,000 unit) capsule bupropion HCl 150 mg 24 hr tablet, 150 mg PO QAM #90 t abs 02/02/25 08/07/25 Rx extended release metformin 500 mg tablet,extended 500 mg PO QACDINNER # 90 tabs 03/01/25 08/07/25 Rx release 24 hr Patient hx anesthesia problems: none Family hx anesthesia problems: none Results Review: All pre-operative results and documents have been reviewed as part of the pre- operative evaluation. [facility] Past Medical History Medical History Diabetes type 2, controlled Gastric polyps DKA (diabetic ketoacidosis) Colon polyps GERD (gastroesophageal reflux disease) Pulmonary embolism 1969' Surgical History Surgical History History of laparoscopy Infertility workup History of colon resection ; 2013 Family History Family History Sibling Acute myocardial infarction Lung cancer Father Chronic obstructive pulmonary disease Hypertension Lung cancer Mother Diabetes mellitus Hypertension Social History Social History Social History: Ms. Dow lives at home with her . She has two daughters. She designates her Rich as her surrogate decision maker and she would like to be a full code. Smoking packs per day: 0.75 Smoking cigarettes per day: 15.0 Years smoked: 10 Smoking pack-years: 7.50 Smoking status: Former smoker Tobacco type: cigarettes Second hand tobacco smoke exposure: Yes Smoking end date: 01/10/75 Alcohol intake: never Drinks per week: 1 Alcohol use details: Social alcohol use a couple times per year. Substance use: never Substance use type: does not use Lack of Transportation: No Lack of Food: Never True Current Housing: I Have Housing Concerned About Future Housing: No Difficulty Paying Gas/Electric Bills: No Difficulty Paying for Meds: No Currently Unemployed: No Education: Trade/Vocational Certificate Difficulty w/ Childcare or Family Care: No Living arrangements: alone Occupation/Education: retired Gender identity (if verbalized by the patient): Female Spiritual care concerns: No Agree to blood products: Yes Anes - Eval Final PreProcedure Day of Procedure 08/21/25 10:20 Patient weight: overweight Heart: regular rate and rhythm Lungs: clear to auscultation Airway: Mallampati scale class II Neurological: alert and oriented Last oral intake: >/= 8 hours ASA classification: III Emergent: no Anesthetic plan: proceed Anesthesia type and monitoring: general GIVS and standard monitoring Results Review: All pre-operative results and documents have been reviewed as part of the pre- operative evaluation. Informed Consent: The patient's anesthetic plan and its attendant risks and benefits were discussed with the patient/family/POA. Questions were solicited and answers provided to the satisfaction of the patient/family/POA.
[2025-08-21 10:33] VITALS: BP 149/83; PULSE 92; RESP 20; TEMP 36.5; O2SAT 99; BMI 28.4
--- NOTE | 2025-08-21 10:49 | PM.HPGS ---
History of Present Illness History of Present Illness Consent: Risks, benefits, and alternatives have been discussed and questions answered. Patient agrees to proceed with procedure. Chief complaint: Muniz's esophagus without dysplasia Narrative: Alison Dow is a 75 year old female with muniz's doing well on ppi, last egd 2023 Review of Systems Review of Systems: All systems reviewed & are unremarkable except as noted in HPI and below PMFSH Past Medical History Medical History Diabetes type 2, controlled Gastric polyps DKA (diabetic ketoacidosis) Colon polyps GERD (gastroesophageal reflux disease) Pulmonary embolism Surgical History Surgical History History of laparoscopy Infertility workup History of colon resection Partial; 2013 Family History Family History Sibling Acute myocardial infarction Lung cancer Father Chronic obstructive pulmonary disease Hypertension Lung cancer Mother Diabetes mellitus Hypertension Social History Social History Social History: Ms. Dwo lives at home with her . She has two daughters. She designates her Royce as her surrogate decision maker and she would like to be a full code. Smoking packs per day: 0.75 Smoking cigarettes per day: 15.0 Years smoked: 10 Smoking pack-years: 7.50 Smoking status: Former smoker Tobacco type: cigarettes Second hand tobacco smoke exposure: Yes Smoking end date: 01/10/75 Alcohol intake: never Drinks per week: 1 Alcohol use details: Social alcohol use a couple times per year. Substance use: never Substance use type: does not use Lack of Transportation: No Lack of Food: Never True Current Housing: I Have Housing Concerned About Future Housing: No Difficulty Paying Gas/Electric Bills: No Difficulty Paying for Meds: No Currently Unemployed: No Education: Trade/Vocational Certificate Difficulty w/ Childcare or Family Care: No Living arrangements: alone Occupation/Education: retired Gender identity (if verbalized by the patient): Female Spiritual care concerns: No Agree to blood products: Yes Meds Home Medications and Allergies Home Medications ?Medication ?Instructions ?Recorded ?Confirmed ?Type blood sugar diagnostic (LastlineTouch #100 ea 02/02/20 08/07/25 Rx Verio test strips) Adults Multivitamin 1 tab-cap PO DAILY 03/21/21 08/21/25 History blood sugar diagnostic (Contour #200 ea 11/04/21 08/07/25 Rx Next Test Strips) lancets (Microlet Lancet) #100 ea 10/09/24 08/07/25 Rx pantoprazole 40 mg tablet,delayed See Rx Instructions .Route 12/15/24 08/21/25 Rx release .COMPLEX #180 tabs cholecalciferol (vitamin D3) 25 25 mcg PO DAILY 01/05/25 08/21/25 History mcg (1,000 unit) capsule bupropion HCl 150 mg 24 hr tablet, 150 mg PO QAM #90 tabs 02/02/25 08/21/25 Rx extended release metformin 500 mg tablet,extended 500 mg PO QACDINNER #90 tabs 03/01/25 08/21/25 Rx release 24 hr Allergies Allergy/AdvReac Type Severity Reaction Status Date / Time Penicillins Allergy Severe Rash Verified 08/21/25 10:32 Vital Signs Vital Signs - 24 hr 08/21/25 10:33 Temperature 97.7 F Pulse Rate 92 Respiratory Rate 20 Blood Pressure 149/83 H Pulse Oximetry 99 Oxygen Delivery Room Air Exam Const: General: comfortable and no acute distress HENMT: Face/Nose/Sinus: Normal nares present Eyes: General: appearance normal, both eyes and all related structures Neck: Neck: no JVD Resp: Auscultation: clear to auscultation bilaterally Cardio: Rate: regular rate Rhythm: regular rhythm GI: Inspection: non-distended GI Palp: Yes Soft to palpation Skin: General skin exam: normal color Extrem: General: normal to inspection Psych: Mental Status: mental status grossly normal Assessment and Plan Assessment and plan (1) Muniz's esophagus without dysplasia: Code(s): K22.70 - Muniz's esophagus without dysplasia Status: Acute Assessment and Plan: egd with bx
[2025-08-21] MEDS: LACTATED RINGERS 1,000 ML 150 ML IV CONT (10:55)
--- NOTE | 2025-08-21 11:10 | S_PTH ---
PATIENT: Alison Dow LOC: [facility] Benntet#:[id number] AGE/SX: 75/F ROOM: RE08/21/[address]: Cornelius Obregon MD : 1950 BED: DIS: 08/21/2025 SPEC #: [id number] RECD: 08/21/25 11:49 STATUS: TATIANA REMark #: [id number] BLAIRE: 08/21/25 11:[address]: Cornelius Obregon DEPT: [facility] Surgical RECD BY: Tawny Fernandez ENTERED: 08/21/25 11:49 SP TYPE: Surgical OTHR DR: Tejas Gonsalez MD Tissues: A - Esophageal Biopsy Procedures: Hematoxylin and Eosin Stain Gross and Microscopic Level 4
[2025-08-21 11:12] VITALS: BP 135/60; PULSE 92; RESP 19; O2SAT 98
[2025-08-21 11:22] VITALS: BP 122/63; PULSE 97; RESP 17; O2SAT 97
[2025-08-21 11:32] VITALS: BP 120/68; PULSE 69; RESP 14; O2SAT 100
== END 2025-08-21 11:45 | disposition home or self-care (01) ==
PROVIDERS: PCP Family Medicine Adolescent Medicine; Referring Provider Internal Medicine Gastroenterology; Visit Provider Internal Medicine Gastroenterology
PROC: 0DJ08ZZ Inspection of Upper Intestinal Tract, Via Natural or Artificial Opening Endoscopic (ICD-10-PCS; CPT 43239; principal; 2025-08-21 11:30)
DX: K22.70 Barrett's esophagus without dysplasia (principal); K31.7 Polyp of stomach and duodenum; K44.9 Diaphragmatic hernia without obstruction or gangrene; K21.9 Gastro-esophageal reflux disease without esophagitis; E11.10 Type 2 diabetes mellitus with ketoacidosis without coma; Z79.84 Long term (current) use of oral hypoglycemic drugs; Z98.890 Other specified postprocedural states; Z86.0100 Personal history of colon polyps, unspecified; Z87.891 Personal history of nicotine dependence; Z87.11 Personal history of peptic ulcer disease; Z86.711 Personal history of pulmonary embolism; Z80.1 Family history of malignant neoplasm of trachea, bronchus and lung; Z82.49 Family history of ischemic heart disease and other diseases of the circulatory system
CPT/HCPCS: 43239; 82948; 88305; J2704; J7120